=== PATIENT | female | born 1970 | race Caucasian/White ===

== ENCOUNTER → 2020-08-03 08:56 | Outpatient (BNVA) | payer OTHER, SELFPAY | PROVIDERS: Visit Provider Surgery | DX: E66.01 Morbid (severe) obesity due to excess calories (principal); Z68.41 Body mass index [BMI] 40.0-44.9, adult; Z98.84 Bariatric surgery status | CPT/HCPCS: 99212 ==

== ENCOUNTER → 2020-09-02 07:19 | Outpatient (BNVA) | payer OTHER, SELFPAY | PROVIDERS: Visit Provider Surgery | DX: E66.01 Morbid (severe) obesity due to excess calories (principal); Z68.39 Body mass index [BMI] 39.0-39.9, adult; Z71.3 Dietary counseling and surveillance | CPT/HCPCS: Q3014 ==

== ENCOUNTER → 2020-10-05 07:18 | Outpatient (BNVA) | payer OTHER, SELFPAY | PROVIDERS: Visit Provider Surgery | DX: E66.9 Obesity, unspecified (principal); Z68.39 Body mass index [BMI] 39.0-39.9, adult | CPT/HCPCS: Q3014 ==

== ENCOUNTER → 2020-11-13 08:19 | Outpatient (BNVA) | payer OTHER, SELFPAY | PROVIDERS: Visit Provider Surgery | DX: E66.9 Obesity, unspecified (principal); Z68.39 Body mass index [BMI] 39.0-39.9, adult | CPT/HCPCS: Q3014 ==

== ENCOUNTER → 2020-12-14 07:26 | Outpatient (BNVA) | payer OTHER, SELFPAY | PROVIDERS: Visit Provider Surgery | DX: E66.9 Obesity, unspecified (principal); Z68.38 Body mass index [BMI] 38.0-38.9, adult; Z71.3 Dietary counseling and surveillance | CPT/HCPCS: Q3014 ==

== ENCOUNTER → 2021-01-22 08:44 | Outpatient (BNVA) | payer OTHER, SELFPAY | PROVIDERS: Visit Provider Surgery | DX: E66.01 Morbid (severe) obesity due to excess calories (principal); Z68.41 Body mass index [BMI] 40.0-44.9, adult | CPT/HCPCS: Q3014 ==

== ENCOUNTER 2021-03-02 11:23 | Outpatient (REF) | payer OTHER, SELFPAY ==
[2021-03-02 13:26] LABS: MANUAL DIFF FLAG NO
[2021-03-02 13:31] LABS: Basophils Percent Auto 0.4 % (0-2); Eosinophils Absolute Auto 0.1 X10*3/uL (0.0-0.4); Hematocrit 38.4 % (37-47); Hemoglobin 12.1 g/dl (12.0-16.0); Imm Gran Abs Auto 0.01 X10*3/uL (0.00-0.03); Imm Gran Pct Auto 0.1 % (0.0-0.4); Lymphocytes Absolute Auto 1.6 X10*3/uL (1.2-4.9); Lymphocytes Percent Auto 19.9 % (20-40); Mean Corpuscular HGB Conc 31.5 g/dl (31.0-35.0); Mean Corpuscular Hemoglobin 27.8 pg (27.0-33.0); Mean Corpuscular Volume 88.3 fL (80-98); Mean Platelet Volume 10.6 fL (9.4-12.3); Monocytes Absolute Auto 0.5 X10*3/uL (0.1-1.2); Monocytes Percent Auto 6.6 % (2-11); Neutrophils Absolute Auto 5.7 X10*3/uL (2.0-8.3); Platelet Count 251 X10*3/uL (160-400); Red Blood Count 4.35 X10*6/uL (4.20-5.50); Red Cell Distribution Width 15.3 % (11.0-16.0); White Blood Count 7.9 X10*3/uL (4.8-10.8)
[2021-03-02 13:39] LABS: Estimated Average Glucose 94 mg/dL; Hemoglobin A1c % 4.9 %
[2021-03-02 14:04] LABS: Alanine Aminotransferase 11 U/L (0-31); Albumin Level 4.2 g/dL (3.5-5.0); Alkaline Phosphatase 117 U/L (39-117); Anion Gap 12 (12-20); Aspartate Amino Transferase 23 U/L (5-31); Bilirubin Total 0.9 mg/dL (0.0-1.0); Blood Urea Nitrogen 12 mg/dL (9-16); C Reactive Protein 0.73 mg/dL (< or = 0.50); Calcium 9.5 mg/dL (8.4-10.2); Carbon Dioxide 31 mmol/L (22-29); Chloride 103 mmol/L (96-108); Cholesterol 158 mg/dL; Estimated Glomerular Filt Rate > 60; Glucose Random 73 mg/dL (60-115); HDL Cholesterol 47 mg/dL; Iron 51 mcg/dL (30-160); LDL Cholesterol Calculated 100 mg/dl; Percent Iron Saturation 16 % (15-50); Potassium 3.4 mmol/L (3.3-5.1); Sodium 143 mmol/L (135-145); Total Iron Binding Capacity 324 mcg/dL (228-428); Total Protein 6.8 g/dL (6.5-8.0); Triglycerides 59 mg/dL; Unsaturated Iron Binding 273 ug/dL
[2021-03-02 14:32] LABS: Folate 19.2 ng/mL (> or = 4.0); Vitamin B12 992 pg/mL (200-900)
[2021-03-02 14:44] LABS: Ferritin 33 ng/mL (10-250)
[2021-03-02 14:46] LABS: Vitamin D 25-OH Total 37.5 ng/mL (>30)
[2021-03-03 12:52] LABS: Insulin Level Total 3.5 uIU/mL
[2021-03-04 13:06] LABS: Calcium (PTHI) 9.2 mg/dL (8.6-10.4); PTHI 65 pg/mL (14-64)
[2021-03-05 00:06] LABS: Zinc 63 mcg/dL (60-130)
[2021-03-07 04:12] LABS: Vitamin A 30 mcg/dL (38-98)
[2021-03-07 12:36] LABS: Vitamin B1 16 nmol/L (8-30)
== END 2021-03-02 11:24 | disposition home or self-care (01) ==
LOC: HO.LAB 11:23
PROVIDERS: PCP Internal Medicine; Visit Provider Surgery
DX: K91.2 Postsurgical malabsorption, not elsewhere classified (principal); Z90.3 Acquired absence of stomach [part of]
CPT/HCPCS: 36415; 80053; 80061; 82306; 82607; 82728; 82746; 83036; 83525; 83540; 83970; 84425; 84443; 84590; 84630; 85025; 86140

== ENCOUNTER → 2021-04-12 07:52 | Outpatient (BNVA) | payer OTHER, SELFPAY | PROVIDERS: PCP Internal Medicine; Visit Provider Surgery | DX: E66.9 Obesity, unspecified (principal); Z68.34 Body mass index [BMI] 34.0-34.9, adult; Z71.3 Dietary counseling and surveillance; Z79.899 Other long term (current) drug therapy | CPT/HCPCS: 93005; 99212; Q3014 ==

== ENCOUNTER → 2021-06-03 08:21 | Outpatient (BNVA) | payer OTHER, SELFPAY | PROVIDERS: PCP Internal Medicine; Visit Provider Physician Assistant Surgical | DX: E66.9 Obesity, unspecified (principal); E50.9 Vitamin A deficiency, unspecified; K21.9 Gastro-esophageal reflux disease without esophagitis; Z68.36 Body mass index [BMI] 36.0-36.9, adult | CPT/HCPCS: Q3014 ==

== ENCOUNTER 2021-06-11 09:06 | Outpatient (REF) | payer OTHER, SELFPAY ==
--- NOTE | ~2021-06-11 | FL_ITS ---
EXAMINATION: XR GI SERIES CLINICAL INFORMATION: Obesity. COMPARISON: None TECHNIQUE: Routine upper GI air-contrast study was performed in upright and lying position. FINDINGS: Following oral administration of thick barium and effervescent granules, there is normal propagation of bolus from the oral cavity through the pharynx, esophagus into stomach. On placing patient supine and prone lying, the course, caliber and peristalsis of the stomach is normal. There is evidence of previous gastric sleeve surgery. There is moderate gastroesophageal reflux of gas into the esophagus. A small transitional hiatal hernia is noted. FLUOROSCOPY TIME: 1.2 minutes DOSE AREA PRODUCT: 23.708 uGy-m2 (microgray-meter squared) FL/FL upper GI series IMPRESSION: Evidence of previous gastric sleeve surgery. Moderate gastroesophageal reflux of gas. No esophageal or gastric obstruction seen.
== END 2021-06-11 09:07 | disposition home or self-care (01) ==
LOC: HO.XRAY 09:06
PROVIDERS: PCP Internal Medicine; Visit Provider Physician Assistant Surgical
DX: E66.9 Obesity, unspecified (principal); K21.9 Gastro-esophageal reflux disease without esophagitis
CPT/HCPCS: 74240

== ENCOUNTER → 2021-07-01 08:06 | Outpatient (BNVA) | payer OTHER, SELFPAY | PROVIDERS: PCP Internal Medicine; Visit Provider Physician Assistant Surgical | DX: E66.9 Obesity, unspecified (principal); E50.9 Vitamin A deficiency, unspecified | CPT/HCPCS: Q3014 ==

== ENCOUNTER → 2021-07-21 08:07 | Outpatient (BNVA) | payer OTHER, SELFPAY | PROVIDERS: PCP Internal Medicine; Visit Provider Physician Assistant Surgical | DX: F32.A Depression, unspecified (principal); R45.851 Suicidal ideations | CPT/HCPCS: 99212 ==

== ENCOUNTER → 2021-07-26 14:09 | Outpatient (BNVA) | payer OTHER, SELFPAY | PROVIDERS: PCP Internal Medicine; Visit Provider Dietitian, Registered | DX: E66.9 Obesity, unspecified (principal); Z68.39 Body mass index [BMI] 39.0-39.9, adult | CPT/HCPCS: 97803 ==

== ENCOUNTER 2021-07-27 12:37 | Outpatient (REF) | payer OTHER, SELFPAY ==
[2021-07-30 22:11] LABS: Vitamin A 33 mcg/dL (38-98)
== END 2021-07-27 12:38 | disposition home or self-care (01) ==
LOC: HO.LAB 12:37
PROVIDERS: PCP Internal Medicine; Visit Provider Physician Assistant Surgical
DX: E50.9 Vitamin A deficiency, unspecified (principal)
CPT/HCPCS: 36415; 84590

== ENCOUNTER → 2021-08-09 13:48 | Outpatient (BNVA) | payer OTHER, SELFPAY | PROVIDERS: PCP Internal Medicine; Visit Provider Physician Assistant Surgical | DX: E66.9 Obesity, unspecified (principal); Z68.39 Body mass index [BMI] 39.0-39.9, adult | CPT/HCPCS: 99212 ==

== ENCOUNTER → 2021-09-13 08:09 | Outpatient (BNVA) | payer OTHER, SELFPAY | PROVIDERS: PCP Internal Medicine; Visit Provider Physician Assistant Surgical | DX: E66.9 Obesity, unspecified (principal); E50.9 Vitamin A deficiency, unspecified | CPT/HCPCS: Q3014 ==

== ENCOUNTER → 2021-12-01 13:29 | Outpatient (BNVA) | payer OTHER, SELFPAY | PROVIDERS: PCP Internal Medicine; Visit Provider Physician Assistant Surgical | DX: E66.01 Morbid (severe) obesity due to excess calories (principal); Z68.41 Body mass index [BMI] 40.0-44.9, adult | CPT/HCPCS: 99212 ==

== ENCOUNTER → 2022-01-03 13:54 | Outpatient (BNVA) | payer OTHER, SELFPAY | PROVIDERS: PCP Internal Medicine; Referring Provider Surgery; Visit Provider Physician Assistant Surgical | DX: E66.01 Morbid (severe) obesity due to excess calories (principal); Z68.41 Body mass index [BMI] 40.0-44.9, adult; Z71.3 Dietary counseling and surveillance | CPT/HCPCS: 99212 ==

== ENCOUNTER → 2022-02-07 09:00 | Outpatient (BNVA) | payer OTHER, SELFPAY | PROVIDERS: PCP Internal Medicine; Visit Provider Physician Assistant Surgical | DX: E66.01 Morbid (severe) obesity due to excess calories (principal); Z68.41 Body mass index [BMI] 40.0-44.9, adult | CPT/HCPCS: 99212 ==

== ENCOUNTER 2022-05-20 08:41 | Outpatient (REF) | payer OTHER, SELFPAY ==
[2022-05-20 09:54] LABS: MANUAL DIFF FLAG NO
[2022-05-20 10:48] LABS: Basophils Percent Auto 0.7 % (0-2); Eosinophils Absolute Auto 0.2 X10*3/uL (0.0-0.4); Hematocrit 36.3 % (37.0-47.0); Hemoglobin 11.7 g/dl (12.0-16.0); Imm Gran Abs Auto 0.02 X10*3/uL (0.00-0.03); Imm Gran Pct Auto 0.4 % (0.0-0.4); Lymphocytes Absolute Auto 1.3 X10*3/uL (1.2-4.9); Lymphocytes Percent Auto 22.7 % (20-40); Mean Corpuscular HGB Conc 32.2 g/dl (31.0-35.0); Mean Corpuscular Hemoglobin 30.5 pg (27.0-33.0); Mean Corpuscular Volume 94.8 fL (80.0-98.0); Mean Platelet Volume 9.8 fL (9.4-12.3); Monocytes Absolute Auto 0.3 X10*3/uL (0.1-1.2); Monocytes Percent Auto 5.7 % (2-11); Neutrophils Absolute Auto 3.8 x10*3/uL (2.0-8.3); Neutrophils Percent Auto 67.5 % (45-73); Platelet Count 238 X10*3/uL (160-400); Red Blood Count 3.83 X10*6/uL (4.20-5.50); Red Cell Distribution Width 14.1 % (11.0-16.0); White Blood Count 5.6 X10*3/uL (4.8-10.8)
[2022-05-20 10:59] LABS: Estimated Average Glucose 91 mg/dL; Hemoglobin A1c % 4.8 %
[2022-05-20 11:13] LABS: Anion Gap 14 (12-20); Blood Urea Nitrogen 8 mg/dL (9-16); C Reactive Protein 0.75 mg/dL (< or = 0.50); Calcium 8.9 mg/dL (8.4-10.2); Carbon Dioxide 28 mmol/L (22-29); Chloride 106 mmol/L (96-108); Cholesterol 171 mg/dL; Estimated Glomerular Filt Rate > 60; Glucose Random 87 mg/dL (60-115); HDL Cholesterol 64 mg/dL; Iron 53 mcg/dL (30-160); LDL Cholesterol Calculated 95 mg/dl; Potassium 4.8 mmol/L (3.3-5.1); Sodium 143 mmol/L (135-145); Triglycerides 63 mg/dL
[2022-05-20 11:15] LABS: Percent Iron Saturation 13 % (15-50); Total Iron Binding Capacity 395 mcg/dL (228-428); Unsaturated Iron Binding 342 ug/dL
[2022-05-20 11:39] LABS: Ferritin 24 ng/mL (10-250); TSH reflex Free T4 1.85 uIU/mL (0.32-4.0); Vitamin D 25-OH Total 33.9 ng/mL (>30)
[2022-05-20 11:50] LABS: Folate > 20.0 ng/mL (> or = 4.0); Vitamin B12 910 pg/mL (200-900)
[2022-05-22 13:17] LABS: Calcium (PTHI) 8.7 mg/dL (8.6-10.4); PTHI 94 pg/mL (16-77)
[2022-05-24 17:42] LABS: Vitamin A 36 mcg/dL (38-98)
[2022-05-25 02:42] LABS: Zinc 75 mcg/dL (60-130)
[2022-05-26 15:11] LABS: Vitamin B1 12 nmol/L (8-30)
== END 2022-05-20 08:42 | disposition home or self-care (01) ==
LOC: HO.LAB 08:41
PROVIDERS: PCP Internal Medicine; Visit Provider Physician Assistant Surgical
DX: E66.01 Morbid (severe) obesity due to excess calories (principal); Z68.41 Body mass index [BMI] 40.0-44.9, adult; K91.2 Postsurgical malabsorption, not elsewhere classified; Z90.3 Acquired absence of stomach [part of]
CPT/HCPCS: 36415; 80048; 80061; 82306; 82607; 82728; 82746; 83036; 83540; 83970; 84425; 84443; 84590; 84630; 85025; 86140; 99212

== ENCOUNTER → 2022-08-01 13:50 | Outpatient (BNVA) | payer OTHER, SELFPAY | PROVIDERS: PCP Internal Medicine; Visit Provider Physician Assistant Surgical | DX: E66.01 Morbid (severe) obesity due to excess calories (principal); Z68.41 Body mass index [BMI] 40.0-44.9, adult | CPT/HCPCS: Q3014 ==

== ENCOUNTER → 2022-10-12 10:22 | Outpatient (BNVA) | payer OTHER, SELFPAY | PROVIDERS: PCP Internal Medicine; Visit Provider Dietitian, Registered | DX: E66.01 Morbid (severe) obesity due to excess calories (principal); Z68.43 Body mass index [BMI] 50.0-59.9, adult | CPT/HCPCS: 97803 ==

== ENCOUNTER → 2022-11-11 11:16 | Outpatient (BNVA) | payer OTHER, SELFPAY | PROVIDERS: PCP Internal Medicine; Visit Provider Dietitian, Registered | DX: E66.01 Morbid (severe) obesity due to excess calories (principal); Z68.41 Body mass index [BMI] 40.0-44.9, adult | CPT/HCPCS: 97803 ==

== ENCOUNTER → 2022-12-09 14:33 | Outpatient (BNVA) | payer OTHER, SELFPAY | PROVIDERS: PCP Internal Medicine; Visit Provider Dietitian, Registered | DX: E66.01 Morbid (severe) obesity due to excess calories (principal) | CPT/HCPCS: 97803 ==

== ENCOUNTER → 2023-01-24 13:21 | Outpatient (BNVA) | payer OTHER, SELFPAY | PROVIDERS: PCP Internal Medicine; Visit Provider Dietitian, Registered | DX: E66.01 Morbid (severe) obesity due to excess calories (principal); Z68.43 Body mass index [BMI] 50.0-59.9, adult | CPT/HCPCS: 97803 ==

== ENCOUNTER 2023-05-05 08:32 | Outpatient (AMB) | payer OTHER, SELFPAY ==
--- NOTE | 2023-05-05 08:38 | A.OFFVIS_ITS ---
Intake VS Expanded 05/05/23 08:59 Height 5 ft Weight 269 lb BMI 52.5 Intake Visit Reasons: (OV) [facility] 05/19/20 Allergies No Known Allergies Allergy (Verified 05/20/22 08:57) HPI Nutrition Presentation Details LSG 05/19/20 Lowest post op weight (04/12/21) 175# BMI 34,2 Weight at 12 MO PO 188 BMI 36.7 weight 05/20/22 235# BMI 46 Last weight Sep 2022 271# Pt declined weight check at previous appointments Last weight January 274# Current weight 269# Reason for consult elevated BMI Diet Assmnt Details From her lowest weight post op, she has gained nearly 100# in almost 2 years. Since our last appt 3 MO ago, she has lost 5# and she is very proud of that Pt states she still has a lot of room for improvement - she reports this is what she eats daily. but has struggled with snacking in the past although does not report snacking today. breakfast: cymro yogurt [employer] cottage cheese with fruit dinner : premade salad with chicken - Briceño salad from [employer] - educated about the fat content and some other options that have better nutritional value Exercise: walks 2 miles tops almost every day Dietary counseling reduction Diagnosis Nutrition problem #1 overweight/obesity As related to (etiology) #1 excess energy intake and physical inactivity As evidenced by (sign/symptom) #1 high BMI Monitoring/Goals Nutrition problem monitoring total energy intake, level of knowledge/skill, total PRO intake, total CHO intake, weight and oral fluids Outcome progress not met Learning/Education Readiness to learn fair Stages of change action Most Recent Diabetes Results: Cholesterol 171 mg/dL 05/20/22 HDL Cholesterol 64 mg/dL 05/20/22 Triglycerides 63 mg/dL 05/20/22 Creatinine 0.71 mg/dL (0.5-1.4) 05/20/22 Blood Urea Nitrogen 8 mg/dL (9-16) L 05/20/22 Sodium 143 mmol/L (135-145) 05/20/22 Potassium 4.8 mmol/L (3.3-5.1) 05/20/22 Chloride 106 mmol/L (96-108) 05/20/22 Carbon Dioxide 28 mmol/L (22-29) 05/20/22 Calcium 8.9 mg/dL (8.4-10.2) 05/20/22 [facility] Medical History GERD (gastroesophageal reflux disease) Intestinal malabsorption Obesity Obesity Surgical History History of bladder surgery History of sleeve gastrectomy Hx of section Hx of lithotripsy Morbid obesity S/P laparoscopic cholecystectomy Family History Father Heart disease Heart transplant status Mother Epilepsy Social History Alcohol intake: never Patient Tobacco Use Status: Never used Tobacco Assessment & Plan Assessment & Plan (1) Morbid obesity: Code(s): E66.01 - Morbid (severe) obesity due to excess calories Patient Instructions: Rec protein shake at noon, and making her own salad at home - ideally to include a variety of vegetable and lean protein. Increase exercise as tolerated, but congratulated on being consistent with her current walking routine. She is due for her annual PA appt with LUÍS which is already scheduled for next week. Patient was encouraged to communicate needed with our and she will follow with me in August. Utilize group support services Coding Level of Care Code Nutr Indiv Subseq (52451) Diagnoses Morbid obesity E66.01 Time Spent (min) 30
[2023-05-05 08:59] VITALS: BMI 52.5
== END 2023-05-05 08:52 | disposition home or self-care (01) ==
PROVIDERS: PCP Internal Medicine; Visit Provider Dietitian, Registered
DX: E66.01 Morbid (severe) obesity due to excess calories (principal)

== ENCOUNTER → 2023-05-05 08:32 | Outpatient (BNVA) | payer OTHER, SELFPAY | PROVIDERS: PCP Internal Medicine; Visit Provider Dietitian, Registered | DX: E66.01 Morbid (severe) obesity due to excess calories (principal); K90.49 Malabsorption due to intolerance, not elsewhere classified; K21.9 Gastro-esophageal reflux disease without esophagitis; Z68.43 Body mass index [BMI] 50.0-59.9, adult; Z71.3 Dietary counseling and surveillance | CPT/HCPCS: 97803 ==

== ENCOUNTER 2023-05-16 16:17 | Outpatient (AMB) | payer OTHER, SELFPAY ==
--- NOTE | 2023-05-16 16:23 | MHC.OFFVISWM ---
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 Current weight is 267.8 pounds with a BMI of 52.3. Lowest post op weight (04/12/21)? 175#? BMI 34,2 Weight at 12 MO PO 188 BMI 36.7 weight 05/20/22? 235# BMI 46 She states she was 278 about 6-8 weeks ago. She has recovered from her foot surgery. Has not been taking MVI for 10 months Reports she is in a much better place mentally now and encouraged to continue to lose weight Meal plan: 7 bites cottage cheese and fruit (honey dew, cantaloupe, watermelon) irish yogurt Celebrate rebuild shake 2 scoops per shake (2 per day) meal 6 forks protein and 4 forks veg Drinking 32 oz water daily Exercise plan: walking 3 miles 3 days per week. Any post op complications: none MUSHTAQ: never DM: never HTN: never Hyperlipidemia: never GERD:?0-5 scale ??0 = no symptoms ??1 = symptoms noticeable but not bothersome 2 =symptoms bothersome but not daily ? 3 = symptoms bothersome and daily 4 = symptoms affect daily activities 5 = symptoms are incapacitating, unable to do daily activities ? How bad is the heartburn: 0 ? Heartburn while lying down: 0 ? Heartburn when standing up: 0 ? Heartburn after meals: 0 ? Does heartburn change your diet: 0 ? Does heartburn wake you up from sleep: 0 ? Do you have difficulty swallowin ? Do you have pain with swallowin ? If you take medicine for your reflux, does this affect your daily life: 0 Satisfaction with present condition - satisfied or not satisfied: dissatisfied but improving [facility] Medical History GERD (gastroesophageal reflux disease) Intestinal malabsorption Obesity Obesity Surgical History History of bladder surgery History of sleeve gastrectomy Hx of section Hx of lithotripsy Morbid obesity S/P laparoscopic cholecystectomy Family History Father Heart disease Heart transplant status Mother Epilepsy Social History Alcohol intake: never Patient Tobacco Use Status: Never used Tobacco Review of Systems Const All systems reviewed & are unremarkable except as noted in HPI and below Physical Exam Vital Signs: Last Vital Signs Temp 97.6 F 05/16/23 16:32 Pulse 68 05/16/23 16:32 BP 143/63 H 05/16/23 16:32 Pulse Ox 95 05/16/23 16:32 Oxygen Delivery Method Room Air 05/16/23 16:32 BMI result Body Mass Index 52.3 Const General: cooperative and no acute distress Orientation/consciousness: patient oriented x3 Resp Effort & Inspection: normal respiratory effort Auscultation: clear to auscultation bilaterally Cardio Rate: regular rate Rhythm: regular rhythm GI Inspection: Yes normal to inspection and Yes incision (well healed) Palpation (GI): Soft to palpation and no masses Neuro General: patient oriented x3 Assessment & Plan Assessment & Plan (1) Morbid obesity with BMI of 40.0-44.9, adult: Code(s): E66.01 - Morbid (severe) obesity due to excess calories; Z68.41 - Body mass index [BMI] 40.0-44.9, adult Plan: check yearly labs Continue meal plan and if needing a third shake, split (2 scoops, 1 scoop, 1 scoop) Encouraged to increase exercise as tolerated to a goal of walking 7 days per week with an ultimate goal of rejoining the gym reminded of upcoming appt gilson [facility], 09/08/23. Encouraged to take her MVI and cheri+D Orders: Orders Vitamin B12 and Folate Today E50.9 - Vitamin A deficiency, unspecified, E66.01 - Morbid (severe) obesity due to excess calories, Z68.41 - Body mass index [BMI] 40.0-44.9, adult Basic Metabolic Panel Today E50.9 - Vitamin A deficiency, unspecified, E66.01 - Morbid (severe) obesity due to excess calories, Z68.41 - Body mass index [BMI] 40.0-44.9, adult C Reactive Protein Today E50.9 - Vitamin A deficiency, unspecified, E66.01 - Morbid (severe) obesity due to excess calories, Z68.41 - Body mass index [BMI] 40.0-44.9, adult Ferritin Today E50.9 - Vitamin A deficiency, unspecified, E66.01 - Morbid (severe) obesity due to excess calories, Z68.41 - Body mass index [BMI] 40.0-44.9, adult Hemoglobin A1c Today E50.9 - Vitamin A deficiency, unspecified, E66.01 - Morbid (severe) obesity due to excess calories, Z68.41 - Body mass index [BMI] 40.0-44.9, adult Insulin Today E50.9 - Vitamin A deficiency, unspecified, E66.01 - Morbid (severe) obesity due to excess calories, Z68.41 - Body mass index [BMI] 40.0-44.9, adult IRON PROFILE Today E50.9 - Vitamin A deficiency, unspecified, E66.01 - Morbid (severe) obesity due to excess calories, Z68.41 - Body mass index [BMI] 40.0-44.9, adult Lipid Panel Today E50.9 - Vitamin A deficiency, unspecified, E66.01 - Morbid (severe) obesity due to excess calories, Z68.41 - Body mass index [BMI] 40.0-44.9, adult PTHI Today E50.9 - Vitamin A deficiency, unspecified, E66.01 - Morbid (severe) obesity due to excess calories, Z68.41 - Body mass index [BMI] 40.0-44.9, adult TSH reflex Free T4 Today E50.9 - Vitamin A deficiency, unspecified, E66.01 - Morbid (severe) obesity due to excess calories, Z68.41 - Body mass index [BMI] 40.0-44.9, adult Vitamin A Today E50.9 - Vitamin A deficiency, unspecified, E66.01 - Morbid (severe) obesity due to excess calories, Z68.41 - Body mass index [BMI] 40.0-44.9, adult Vitamin B1 Today E50.9 - Vitamin A deficiency, unspecified, E66.01 - Morbid (severe) obesity due to excess calories, Z68.41 - Body mass index [BMI] 40.0-44.9, adult Vitamin D 25-OH Total Today E50.9 - Vitamin A deficiency, unspecified, E66.01 - Morbid (severe) obesity due to excess calories, Z68.41 - Body mass index [BMI] 40.0-44.9, adult Zinc Today E50.9 - Vitamin A deficiency, unspecified, E66.01 - Morbid (severe) obesity due to excess calories, Z68.41 - Body mass index [BMI] 40.0-44.9, adult Complete Blood Count Auto Diff Today E50.9 - Vitamin A deficiency, unspecified, E66.01 - Morbid (severe) obesity due to excess calories, Z68.41 - Body mass index [BMI] 40.0-44.9, adult Coding Level of Care Code Est Pt Level 4 (31069) Diagnoses Morbid obesity with BMI of 40.0-44.9, adult E66.01; Z68.41 Time Spent (min) 40
[2023-05-16 16:32] VITALS: BP 143/63; PULSE 68; TEMP 36.4; O2SAT 95; BMI 52.3
== END 2023-05-16 17:05 | disposition home or self-care (01) ==
PROVIDERS: PCP Internal Medicine; Visit Provider Physician Assistant Surgical
DX: E66.01 Morbid (severe) obesity due to excess calories (principal); Z68.41 Body mass index [BMI] 40.0-44.9, adult
CPT/HCPCS: 99214

== ENCOUNTER → 2023-05-16 16:17 | Outpatient (BNVA) | payer OTHER, SELFPAY | PROVIDERS: PCP Internal Medicine; Visit Provider Physician Assistant Surgical | DX: E66.01 Morbid (severe) obesity due to excess calories (principal); Z68.41 Body mass index [BMI] 40.0-44.9, adult; Z98.84 Bariatric surgery status | CPT/HCPCS: 99212 ==

== ENCOUNTER 2023-05-17 08:23 | Outpatient (REF) | payer OTHER, SELFPAY ==
[2023-05-17 08:42] LABS: MANUAL DIFF FLAG NO
[2023-05-17 08:56] LABS: Basophils Absolute Auto 0.1 X10*3/uL (0.0-0.2); Basophils Percent Auto 0.7 % (0-2); Eosinophils Absolute Auto 0.2 X10*3/uL (0.0-0.4); Eosinophils Percent Auto 3.6 % (0-4); Hematocrit 36.3 % (37.0-47.0); Hemoglobin 11.3 g/dl (12.0-16.0); Imm Gran Abs Auto 0.02 X10*3/uL (0.00-0.03); Imm Gran Pct Auto 0.3 % (0.0-0.4); Lymphocytes Absolute Auto 1.6 X10*3/uL (1.2-4.9); Mean Corpuscular HGB Conc 31.1 g/dl (31.0-35.0); Mean Corpuscular Hemoglobin 27.6 pg (27.0-33.0); Mean Corpuscular Volume 88.5 fL (80.0-98.0); Mean Platelet Volume 9.5 fL (9.4-12.3); Monocytes Absolute Auto 0.4 X10*3/uL (0.1-1.2); Monocytes Percent Auto 6.2 % (2-11); Neutrophils Absolute Auto 4.5 x10*3/uL (2.0-8.3); Neutrophils Percent Auto 66.2 % (45-73); Platelet Count 258 X10*3/uL (160-400); Red Cell Distribution Width 15.8 % (11.0-16.0); White Blood Count 6.7 X10*3/uL (4.8-10.8)
[2023-05-17 09:03] LABS: Estimated Average Glucose 100 mg/dL; Hemoglobin A1c % 5.1 % (<6.0)
[2023-05-17 09:39] LABS: Anion Gap 11 (12-20); Blood Urea Nitrogen 12 mg/dL (9-16); C Reactive Protein 1.34 mg/dL (< or = 0.50); Calcium 9.1 mg/dL (8.4-10.2); Carbon Dioxide 27 mmol/L (22-29); Chloride 107 mmol/L (96-108); Cholesterol 178 mg/dL (<200); Estimated Glomerular Filt Rate > 60; Glucose Random 85 mg/dL (60-115); HDL Cholesterol 52 mg/dL (>40); Iron 47 mcg/dL (30-160); LDL Cholesterol Calculated 107 mg/dL (<100); Percent Iron Saturation 15 % (15-50); Potassium 3.9 mmol/L (3.3-5.1); Sodium 141 mmol/L (135-145); Total Iron Binding Capacity 304 mcg/dL (228-428); Triglycerides 95 mg/dL (<150); Unsaturated Iron Binding 257 ug/dL
[2023-05-17 10:10] LABS: Ferritin 27 ng/mL (10-250); TSH reflex Free T4 2.58 uIU/mL (0.32-4.0); Vitamin D 25-OH Total 32.7 ng/mL (>30)
[2023-05-17 10:11] LABS: Vitamin B12 509 pg/mL (200-900)
[2023-05-17 10:22] LABS: Insulin 5 uU/mL (2-29)
[2023-05-18 10:48] LABS: Calcium (PTHI) 8.8 mg/dL (8.6-10.4); PTHI 85 pg/mL (16-77)
[2023-05-21 16:29] LABS: Zinc 68 mcg/dL (60-130)
[2023-05-22 11:58] LABS: Vitamin B1 6 nmol/L (8-30)
[2023-05-24 00:03] LABS: Vitamin A 52 mcg/dL (38-98)
== END 2023-05-17 08:24 | disposition home or self-care (01) ==
LOC: HO.LAB 08:23
PROVIDERS: PCP Internal Medicine; Visit Provider Physician Assistant Surgical
DX: E50.9 Vitamin A deficiency, unspecified (principal); E66.01 Morbid (severe) obesity due to excess calories; Z68.41 Body mass index [BMI] 40.0-44.9, adult
CPT/HCPCS: 36415; 80048; 80061; 82306; 82607; 82728; 82746; 83036; 83525; 83540; 83970; 84425; 84443; 84590; 84630; 85025; 86140

== ENCOUNTER 2023-07-14 09:43 | Outpatient (AMB) | payer OTHER, SELFPAY ==
--- NOTE | 2023-07-14 09:58 | MHC.OFFVISWM ---
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 Current weight is 271.8 pounds with a BMI of 53. Lowest post op weight (04/12/21)? 175#? BMI 34,2 Weight at 12 MO PO 188 BMI 36.7 Weight 05/20/22? 235# BMI 46 She has recovered from her foot surgery. Has been taking MVI. Reports she is in a much better place mentally now and encouraged to continue to lose weight. She states she would like to try an all liquid diet as she states she is able to do well with the meal plans for 2 weeks and then falls apart Meal plan: 7 bites cottage cheese and fruit (honey dew, cantaloupe, watermelon) slovenian yogurt Celebrate rebuild shake 2 scoops per shake (2 per day) meal 6 forks protein and 4 forks veg Drinking 32 oz water daily Exercise plan: walking 2.5-3 miles 4 days per week. [facility] Medical History GERD (gastroesophageal reflux disease) Obesity Obesity Intestinal malabsorption Surgical History Morbid obesity S/P laparoscopic cholecystectomy History of sleeve gastrectomy Hx of lithotripsy History of bladder surgery Hx of section Family History Father Heart disease Heart transplant status Mother Epilepsy Social History Alcohol intake: never Patient Tobacco Use Status: Never used Tobacco Review of Systems Const All systems reviewed & are unremarkable except as noted in HPI and below Physical Exam Vital Signs: Last Vital Signs Temp 97.5 F 07/14/23 10:05 Pulse 75 07/14/23 10:05 BP 143/65 H 07/14/23 10:05 Pulse Ox 96 07/14/23 10:05 Oxygen Delivery Method Room Air 07/14/23 10:05 BMI result Body Mass Index 53.1 Assessment & Plan Assessment & Plan (1) Morbid obesity: Code(s): E66.01 - Morbid (severe) obesity due to excess calories Plan: Patient has requested an all liquid diet using celebrate rebuild protein powder. Recommendation is for for shakes with 2 scoops each mixed in 10 oz of unsweetened almond milk. Recommend increasing walking to 5 times per week. She will return to the clinic in 6 weeks time, calling or texting with any questions or concerns. Coding Level of Care Code Est Pt Level 3 (70210) Diagnoses Morbid obesity E66.01
[2023-07-14 10:05] VITALS: BP 143/65; PULSE 75; TEMP 36.4; O2SAT 96; BMI 53.1
== END 2023-07-14 10:31 | disposition home or self-care (01) ==
PROVIDERS: PCP Internal Medicine; Visit Provider Physician Assistant Surgical
DX: E66.01 Morbid (severe) obesity due to excess calories (principal)
CPT/HCPCS: 99213

== ENCOUNTER → 2023-07-14 09:43 | Outpatient (BNVA) | payer OTHER, SELFPAY | PROVIDERS: PCP Internal Medicine; Visit Provider Physician Assistant Surgical | DX: E66.9 Obesity, unspecified (principal); K90.9 Intestinal malabsorption, unspecified; K21.9 Gastro-esophageal reflux disease without esophagitis; Z68.43 Body mass index [BMI] 50.0-59.9, adult; Z90.49 Acquired absence of other specified parts of digestive tract; Z90.3 Acquired absence of stomach [part of] | CPT/HCPCS: 99212 ==

== ENCOUNTER 2023-08-25 08:21 | Outpatient (AMB) | payer OTHER, SELFPAY ==
--- NOTE | 2023-08-25 08:30 | A.OFFVIS_ITS ---
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 Current weight is 271.8 pounds with a BMI of 53. Lowest post op weight (04/12/21)? 175#? BMI 34,2 Weight at 12 MO PO 188 BMI 36.7 Weight 05/20/22? 235pounds BMI 46 weight on 07/14/23 271.8 pounds and BMI of 53.1 Weight today is 271.4 pounds and BMI of 53 She has recovered from her foot surgery. Has been taking MVI. Reports she is in a much better place mentally now and encouraged to continue to lose weight. At her last visit, she stated she would like to do an all liquid diet. She states she just found out her 12 yo son has a tumor on his penis and she has to go to [facility] for treatment, This has not yet happened but she is very upset about this. Her ortho surgeon is planning on doing an MRI of her neck in a couple of weeks if her right arm continues to hurt. She states she was able to follow the meal plan for 2 weeks but then stopped when she found out about her sons tumor. She thinks she could do 2 shakes. She states that she does not want to return to the program for some time as she needs to focus on her son. She was offered a follow-up video appointment but declined. She certainly was encouraged to call the office at any time when she wishes to return as well she was encouraged to text me if she has any questions or concerns. Meal plan: Celebrate rebuild protein powder 4 shakes with 2 scoops each in 10 oz of unsweetened almond milk. Drinking 32 oz water Exercise plan: walking 2-4 miles 4 days per week. [facility] Medical History GERD (gastroesophageal reflux disease) Obesity Obesity Intestinal malabsorption Surgical History Morbid obesity S/P laparoscopic cholecystectomy History of sleeve gastrectomy Hx of lithotripsy History of bladder surgery Hx of section Family History Father Heart disease Heart transplant status Mother Epilepsy Social History Alcohol intake: never Patient Tobacco Use Status: Never used Tobacco Review of Systems Const All systems reviewed & are unremarkable except as noted in HPI and below Physical Exam Const General: healthy appearing and no acute distress Resp Effort & Inspection: normal respiratory effort Auscultation: clear to auscultation bilaterally Cardio Rate: regular rate Rhythm: regular rhythm GI Auscultation: normal bowel sounds Extrem General: Yes normal to inspection Assessment & Plan Assessment & Plan (1) Morbid obesity with BMI of 40.0-44.9, adult: Code(s): E66.01 - Morbid (severe) obesity due to excess calories; Z68.41 - Body mass index [BMI] 40.0-44.9, adult Plan: She will attempt to do to celebrate rebuild shakes with 2 scoops each in 10 oz of unsweetened almond milk as well as 2 meals consisting of 7 forks of protein and 7 forks of vegetables each. She was encouraged to increase her walking to 5-6 days a week, 3 miles daily. She certainly may return to the office at any time. She was encouraged to text me with any questions or concerns at any time. She declines follow-up appointment at this time. Coding Level of Care Code Est Pt Level 3 (50625) Diagnoses Morbid obesity with BMI of 40.0-44.9, adult E66.01; Z68.41
[2023-08-25 08:37] VITALS: BP 126/63; PULSE 96; TEMP 36.2; O2SAT 97; BMI 53.0
== END 2023-08-25 09:02 | disposition home or self-care (01) ==
PROVIDERS: PCP Internal Medicine; Visit Provider Physician Assistant Surgical
DX: E66.01 Morbid (severe) obesity due to excess calories (principal); Z68.41 Body mass index [BMI] 40.0-44.9, adult
CPT/HCPCS: 99213

== ENCOUNTER → 2023-08-25 08:21 | Outpatient (BNVA) | payer OTHER, SELFPAY | PROVIDERS: PCP Internal Medicine; Visit Provider Physician Assistant Surgical | DX: E66.01 Morbid (severe) obesity due to excess calories (principal); Z68.43 Body mass index [BMI] 50.0-59.9, adult | CPT/HCPCS: 99212 ==

== ENCOUNTER 2023-12-01 15:06 | Outpatient (AMB) | payer OTHER, SELFPAY ==
--- NOTE | 2023-12-01 15:11 | A.OFFVIS_ITS ---
Intake VS Expanded 12/01/23 15:21 BP 134/61 Blood Pressure Location Rt brachial Blood Pressure Position Sitting Pulse 74 Pulse Source Pulse Oximeter Temp 97.6 F Temperature Source Tympanic Pulse Oximetry 92 Oxygen Delivery Method Room Air Height 5 ft Weight 278 lb 3.2 oz BMI 54.3 Body Fat % 48.7 Body Fat Mass 135.4 Fat Free Mass 142.6 Visceral Fat Rating 19.0 Body Water % 36.6 Body Water Mass 101.6 Muscle Mass/Score 135.4 Basal Metabolic Rate/Score 2,033 Intake Visit Reasons: (ov) po [facility] 05/19/20 Allergies No Known Allergies Allergy (Verified 08/25/23 08:34) HPI HPI Comments History of Present Illness Details 53-year-old female returns to the office today in follow-up. She is status post sleeve gastrectomy performed 04/29/2020. She is approximately 3 years 7 months postoperative. She was last seen in the office in August. Weight at that time was 271.4 with a BMI of 53. Weight today is 278.2 with a BMI of 54.3. She had been under significant stress at that time as her son was being treated for a genital tumor. This has since resolved and she states he is cancer free. Meal plan: 2 eggs tuna or leftovers pasta, or chili, burnt ends, chicken nap until daughter gets home from work at 1230 am (eating ice cream or cheese) drinking 64 oz water, 12 oz sprite 2 x per week. exercise plan: walking 45-90 min daily [facility] Medical History GERD (gastroesophageal reflux disease) Obesity Obesity Intestinal malabsorption Surgical History Morbid obesity S/P laparoscopic cholecystectomy History of sleeve gastrectomy Hx of lithotripsy History of bladder surgery Hx of section Family History Father Heart disease Heart transplant status Mother Epilepsy Social History Alcohol intake: never Patient Tobacco Use Status: Never used Tobacco Review of Systems Const All systems reviewed & are unremarkable except as noted in HPI and below Physical Exam Const General: healthy appearing and no acute distress Resp Effort & Inspection: normal respiratory effort Auscultation: clear to auscultation bilaterally Cardio Rate: regular rate Rhythm: regular rhythm GI Auscultation: normal bowel sounds Extrem General: Yes normal to inspection Assessment & Plan Assessment & Plan (1) Morbid obesity with BMI of 40.0-44.9, adult: Code(s): E66.01 - Morbid (severe) obesity due to excess calories; Z68.41 - Body mass index [BMI] 40.0-44.9, adult Plan: Change meal plan to include celebrate rebuild shakes. Two scoops in 10 oz of unsweetened almond milk at 6-8 am, 9-11 am Zone perfect bar 1-3 pm, 4-6 pm meal at 7 pm 9 forks of protein and 9 forks of veggies She will stop waking up at 12:30 in the morning to discuss the day's events with her daughter. She will have a mother daughter day on Fridays when they both are not working. Continue to walk as she is doing although suggest tracking her calories with the meng, [employer]. Return to clinic 1 month. Coding Level of Care Code Est Pt Level 3 (36416) Diagnoses Morbid obesity with BMI of 40.0-44.9, adult E66.01; Z68.41
[2023-12-01 15:21] VITALS: BP 134/61; PULSE 74; TEMP 36.4; O2SAT 92; BMI 54.3
== END 2023-12-01 15:46 | disposition home or self-care (01) ==
PROVIDERS: PCP Internal Medicine; Visit Provider Physician Assistant Surgical
DX: E66.01 Morbid (severe) obesity due to excess calories (principal); Z68.41 Body mass index [BMI] 40.0-44.9, adult
CPT/HCPCS: 99213

== ENCOUNTER → 2023-12-01 15:06 | Outpatient (BNVA) | payer OTHER, SELFPAY | PROVIDERS: PCP Internal Medicine; Visit Provider Physician Assistant Surgical | DX: E66.01 Morbid (severe) obesity due to excess calories (principal); Z68.43 Body mass index [BMI] 50.0-59.9, adult | CPT/HCPCS: 99212 ==

== ENCOUNTER 2024-01-01 14:33 | Outpatient (AMB) | payer OTHER, SELFPAY ==
--- NOTE | 2024-01-01 14:36 | A.OFFVIS_ITS ---
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 She is status post sleeve gastrectomy performed 04/29/2020. She is approximately 3 years 8 months postoperative. She was last seen in the office 12/01/23. Weight at that time was 278.2 with a BMI of 54.3. Weight today is 273.2 lb with a BMI of 53.3. She states her 5 pound weight loss since last visit is increased walking and now she states she has more money to afford bars and shakes. She has not been following the meal plan exactly over the last several weeks as she didn't have the money for the shakes and bars. Typically would have oatmeal, PB and J sandwich and then meat and veg at dinner Meal plan: celebrate rebuild shakes. Two scoops in 10 oz of unsweetened almond milk at 6-8 am, 9-11 am Zone perfect bar 1-3 pm, 4-6 pm meal at 7 pm 9 forks of protein and 9 forks of veggies drinking 64 oz water, exercise plan: walking 60-90 min daily [facility] Medical History GERD (gastroesophageal reflux disease) Obesity Obesity Intestinal malabsorption Surgical History Morbid obesity S/P laparoscopic cholecystectomy History of sleeve gastrectomy Hx of lithotripsy History of bladder surgery Hx of section Family History Father Heart disease Heart transplant status Mother Epilepsy Social History Alcohol intake: never Patient Tobacco Use Status: Never used Tobacco Physical Exam Vital Signs: Last Vital Signs Temp 95.0 F L 01/01/24 14:42 Pulse 74 01/01/24 14:42 BP 126/59 L 01/01/24 14:42 Pulse Ox 95 01/01/24 14:42 Oxygen Delivery Method Room Air 01/01/24 14:42 BMI result Body Mass Index 53.3 Const General: healthy appearing and no acute distress Resp Effort & Inspection: normal respiratory effort Auscultation: clear to auscultation bilaterally Cardio Rate: regular rate Rhythm: regular rhythm GI Auscultation: normal bowel sounds Extrem General: Yes normal to inspection Assessment & Plan Assessment & Plan (1) Morbid obesity with BMI of 40.0-44.9, adult: Code(s): E66.01 - Morbid (severe) obesity due to excess calories; Z68.41 - Body mass index [BMI] 40.0-44.9, adult Plan: She is lost 5 lb just by increasing exercise. She now has money to afford the protein shakes and protein bars which she will now incorporate into her meal plan. She was advised to avoid bread and soda. We will have her return to the office when she comes back from her vacation in [place]. Coding Level of Care Code Est Pt Level 3 (71263) Diagnoses Morbid obesity with BMI of 40.0-44.9, adult E66.01; Z68.41
[2024-01-01 14:42] VITALS: BP 126/59; PULSE 74; TEMP 35; O2SAT 95; BMI 53.3
== END 2024-01-01 15:11 | disposition home or self-care (01) ==
PROVIDERS: PCP Internal Medicine; Visit Provider Physician Assistant Surgical
DX: E66.01 Morbid (severe) obesity due to excess calories (principal); Z68.41 Body mass index [BMI] 40.0-44.9, adult
CPT/HCPCS: 99213

== ENCOUNTER → 2024-01-01 14:33 | Outpatient (BNVA) | payer OTHER, SELFPAY | PROVIDERS: PCP Internal Medicine; Visit Provider Physician Assistant Surgical | DX: E66.01 Morbid (severe) obesity due to excess calories (principal); K90.49 Malabsorption due to intolerance, not elsewhere classified; Z68.43 Body mass index [BMI] 50.0-59.9, adult; Z90.3 Acquired absence of stomach [part of] | CPT/HCPCS: 99212 ==

== ENCOUNTER 2024-02-06 14:23 | Outpatient (AMB) | payer OTHER, SELFPAY ==
--- NOTE | 2024-02-06 14:27 | MHC.OFFVISWM ---
VS Expanded 02/06/24 14:40 BP 140/65 H Blood Pressure Location Rt brachial Blood Pressure Position Sitting Pulse 76 Pulse Source Pulse Oximeter Temp 97.1 F Temperature Source Temporal Artery Scan Pulse Oximetry 95 Oxygen Delivery Method Room Air Height 5 ft Weight 270 lb 6.4 oz BMI 52.8 Body Fat % 48.9 Body Fat Mass 132.0 Fat Free Mass 138.2 Visceral Fat Rating 19.0 Body Water % 36.4 Body Water Mass 98.4 Muscle Mass/Score 131.2 Basal Metabolic Rate/Score 1,969 Intake Visit Reasons: (ov) po lsg 05/19/20 Allergies No Known Allergies Allergy (Verified 02/06/24 14:33) HPI Comments Details: 53-year-old female returns to the office today in follow-up. She is status post sleeve gastrectomy performed 04/29/2020. She is approximately 3 years 9 months postoperative. Weight today is 270.4 lb with a BMI of 52.8. She was away in [place] and had difficulty following the plan. She did increase her walking. Due to social pressure from her family she ate more than she should. SHe has been back for about a week. Meal plan: celebrate rebuild shakes. Two scoops in 10 oz of unsweetened almond milk at 6-8 am, 9-11 am Zone perfect bar 1-3 pm, 4-6 pm meal at 7 pm 9 forks of protein and 9 forks of veggies drinking 64 oz water, exercise plan: walking 3-3.5 daily PFSH Medical History GERD (gastroesophageal reflux disease) Obesity Obesity Intestinal malabsorption Surgical History Morbid obesity S/P laparoscopic cholecystectomy History of sleeve gastrectomy Hx of lithotripsy History of bladder surgery Hx of section Family History Father Heart disease Heart transplant status Mother Epilepsy Social History Alcohol intake: never Patient Tobacco Use Status: Never used Tobacco Physical Exam Const General: healthy appearing and no acute distress Resp Effort & Inspection: normal respiratory effort Auscultation: clear to auscultation bilaterally Cardio Rate: regular rate Rhythm: regular rhythm GI Auscultation: normal bowel sounds Extrem General: Yes normal to inspection Assessment & Plan Assessment & Plan (1) Morbid obesity: Code(s): E66.01 - Morbid (severe) obesity due to excess calories Category: Surgical Plan: Overall, doing well. Making slow but steady progress. Now that she is returned from vacation and able to institute the meal plan as we discussed above, she will do so. We will additionally have her return to the office in approximately 6 weeks and then approximately 6 weeks after that. She has been encouraged to text weekly with any questions or concerns.
[2024-02-06 14:40] VITALS: BP 140/65; PULSE 76; TEMP 36.2; O2SAT 95; BMI 52.8
== END 2024-02-06 14:57 | disposition home or self-care (01) ==
PROVIDERS: PCP Internal Medicine; Visit Provider Physician Assistant Surgical
DX: E66.01 Morbid (severe) obesity due to excess calories (principal)
CPT/HCPCS: 99213

== ENCOUNTER → 2024-02-06 14:23 | Outpatient (BNVA) | payer OTHER, SELFPAY | PROVIDERS: PCP Internal Medicine; Visit Provider Physician Assistant Surgical | DX: E66.01 Morbid (severe) obesity due to excess calories (principal); Z68.43 Body mass index [BMI] 50.0-59.9, adult; Z98.84 Bariatric surgery status | CPT/HCPCS: 99212 ==

== ENCOUNTER 2024-04-15 09:20 | Outpatient (AMB) | payer OTHER, SELFPAY ==
--- NOTE | 2024-04-15 09:27 | A.OFFVIS_ITS ---
VS Expanded 04/15/24 09:32 BP 145/67 H Blood Pressure Location Rt radial Blood Pressure Position Sitting Pulse 89 Pulse Source Pulse Oximeter Temp 96.3 F L Temperature Source Tympanic Pulse Oximetry 96 Oxygen Delivery Method Room Air Height 5 ft Weight 263 lb 12.8 oz BMI 51.5 Body Fat % 50.0 Body Fat Mass 131.8 Fat Free Mass 131.8 Visceral Fat Rating 19.0 Body Water % 35.6 Body Water Mass 94.0 Muscle Mass/Score 125.2 Basal Metabolic Rate/Score 1,886 Intake Visit Reasons: OV PO LSG 05/19/20 Allergies No Known Allergies Allergy (Verified 04/15/24 09:33) HPI Comments Details: 54-year-old female returns to the office today in follow-up. She is status post sleeve gastrectomy performed 04/29/2020. She is approximately 3 years 11 months postoperative. Weight today is 263.8 lb with a BMI of 51.5. She states she does not like the shakes anymore and she has changed her meal plan without any communication or guidance. recommended plan: celebrate rebuild shakes. Two scoops in 10 oz of unsweetened almond milk at 6-8 am, 9-11 am Zone perfect bar 1-3 pm, 4-6 pm meal at 7 pm 9 forks of protein and 9 forks of veggies drinking 64 oz water, her plan: [place] yogurt or ZP bar citizen [place] yogurt or bar 10 cubes of cheese 7 forks protein and 5 forks veg another bar or yogurt 64-80 oz water exercise plan: walking 3-3.5 daily elliptical machine at home bought used, 2-4 x per week, 20 minutes, [facility] Medical History GERD (gastroesophageal reflux disease) Obesity Obesity Intestinal malabsorption Surgical History Morbid obesity S/P laparoscopic cholecystectomy History of sleeve gastrectomy Hx of lithotripsy History of bladder surgery Hx of section Family History Father Heart disease Heart transplant status Mother Epilepsy Social History Alcohol intake: never Patient Tobacco Use Status: Never used Tobacco Physical Exam Vital Signs: Last Vital Signs Temp 96.3 F L 04/15/24 09:32 Pulse 89 04/15/24 09:32 BP 145/67 H 04/15/24 09:32 Pulse Ox 96 04/15/24 09:32 Oxygen Delivery Method Room Air 04/15/24 09:32 BMI result Body Mass Index 51.5 Const General: healthy appearing and no acute distress Resp Effort & Inspection: normal respiratory effort Auscultation: clear to auscultation bilaterally Cardio Rate: regular rate Rhythm: regular rhythm GI Auscultation: normal bowel sounds Extrem General: Yes normal to inspection Assessment & Plan Assessment & Plan (1) Morbid obesity with BMI of 40.0-44.9, adult: Code(s): E66.01 - Morbid (severe) obesity due to excess calories; Z68.41 - Body mass index [BMI] 40.0-44.9, adult Category: Medical Plan: Patient states that she does not wish to use protein shakes any longer. I have instructed her to have 2 zone perfect protein bars and 2 Italian yogurt and 8 forks protein and 7 forks vegetables. I have instructed her to use her exercise machine at home daily in addition to walking. Text with any questions or concerns. Return to clinic 4 weeks
[2024-04-15 09:32] VITALS: BP 145/67; PULSE 89; TEMP 35.7; O2SAT 96; BMI 51.5
== END 2024-04-15 09:58 | disposition home or self-care (01) ==
PROVIDERS: PCP Internal Medicine; Visit Provider Physician Assistant Surgical
DX: E66.01 Morbid (severe) obesity due to excess calories (principal); Z68.41 Body mass index [BMI] 40.0-44.9, adult
CPT/HCPCS: 99213

== ENCOUNTER → 2024-04-15 09:20 | Outpatient (BNVA) | payer OTHER, SELFPAY | PROVIDERS: PCP Internal Medicine; Visit Provider Physician Assistant Surgical | DX: E66.01 Morbid (severe) obesity due to excess calories (principal); Z68.43 Body mass index [BMI] 50.0-59.9, adult; Z98.84 Bariatric surgery status | CPT/HCPCS: 99212 ==

== ENCOUNTER 2024-08-28 14:03 | Outpatient (AMB) | payer OTHER, SELFPAY ==
--- NOTE | 2024-08-28 14:04 | MHC.OFFVISWM ---
VS Expanded 08/28/24 14:09 BP 134/64 Blood Pressure Location Rt brachial Blood Pressure Position Sitting Pulse 80 Pulse Source Pulse Oximeter Temp 97.8 F Temperature Source Temporal Artery Scan Pulse Oximetry 95 Oxygen Delivery Method Room Air Height 5 ft Weight 263 lb 6.4 oz BMI 51.4 Body Fat % 49.7 Body Fat Mass 131.0 Fat Free Mass 132.2 Visceral Fat Rating 19.0 Body Water % 35.8 Body Water Mass 94.2 Muscle Mass/Score 125.6 Basal Metabolic Rate/Score 1,890 Intake Visit Reasons: (ov) po lsg 05/19/20 Allergies No Known Allergies Allergy (Verified 08/28/24 14:07) HPI Comments Details: 54-year-old female returns to the office today in follow-up. She is status post sleeve gastrectomy performed 04/29/2020. She is approximately 4 years 3 months postoperative. Weight today is 263.4 lb with a BMI of 51.4. She states she does not like the shakes anymore and she has changed her meal plan without any communication or guidance. Not following any particular meal plan. Not exercising recommended plan: celebrate rebuild shakes. Two scoops in 10 oz of unsweetened almond milk at 6-8 am, 9-11 am Zone perfect bar 1-3 pm, 4-6 pm meal at 7 pm 6 forks of protein and 6 forks of veggies drinking 64 oz water, exercise plan: elliptical machine at home bought used [facility] Medical History GERD (gastroesophageal reflux disease) Obesity Obesity Intestinal malabsorption Surgical History Morbid obesity S/P laparoscopic cholecystectomy History of sleeve gastrectomy Hx of lithotripsy History of bladder surgery Hx of section Family History Father Heart disease Heart transplant status Mother Epilepsy Social History Alcohol intake: never Patient Tobacco Use Status: Never used Tobacco Physical Exam Vital Signs: Last Vital Signs Temp 97.8 F 08/28/24 14:09 Pulse 80 08/28/24 14:09 BP 134/64 08/28/24 14:09 Pulse Ox 95 12/04/24 14:09 Oxygen Delivery Method Room Air 08/28/24 14:09 BMI result Body Mass Index 51.4 Const General: healthy appearing and no acute distress Resp Effort & Inspection: normal respiratory effort Auscultation: clear to auscultation bilaterally Cardio Rate: regular rate Rhythm: regular rhythm GI Auscultation: normal bowel sounds Extrem General: Yes normal to inspection Assessment & Plan Assessment & Plan (1) Morbid obesity: Code(s): E66.01 - Morbid (severe) obesity due to excess calories Category: Surgical Plan: Discussed the importance of following meal plan and exercising regularly. Again went over the meal plan and gave it to her in written form. She will resume her exercise at home with a goal of burning 300 calories per day. She has been encouraged to text weekly with her weight is and with any questions or concerns. Have her return to the office as scheduled. Encouraged to get labs done that were ordered in April
[2024-08-28 14:09] VITALS: BP 134/64; PULSE 80; TEMP 36.6; O2SAT 95; BMI 51.4
--- OUTSIDE RECORDS SUMMARY | 2024-09-03 20:43 | XMS_ITS | Clinical Summary ---
Author Organization Unknown Care Team Providers Care Spinner Iron Name Role Phone CHANCE RODRIGUEZ, LILLI Unavailable Unavailable HARRISON OT, NURYS Unavailable Unavailjoaquim HIDALGO RN, ULISES Unavailable Unavailable MEAGAN OT, THERAPY REHABILITATION SPECIALIST, MARISSA Unavailjoaquim matthews Unavailable FRANKO RN, KAREN Unavailable Unavailable HEBER ([facility] [place]) [facility] [place] - PT, HARSH Unavailable Unavailable DOMINICK RN, HEIDI Unavailable Unavailable Payers Payer Name Policy Type Policy Number Effective Date Expira tion Date [facility] [id number] [place] [id number] MEDICARE - [facility] [facility] [id number] Problems Condition Name Condition Details Condition Category Status Onset Date Resolution Date Last Treatment Date Treating Clinician Comments MAJOR DEPRESSIVE DISORDER, SINGLE EPISODE, UNSPECIFIED Active 11-25 00:00: 00 AFTERCARE FOLLOWING EXPLANTATION OF KNEE JOINT PROSTHESIS Active 11-26 00:00: 00 PRESENCE OF RIGHT ARTIFICIAL KNEE JOINT Active 18 00:00: 00 UNSPECIFIED ABNORMALITIE S OF GAIT AND MOBILITY Active 2021-09 0-31 00:00: 00 Allergies, Adverse Reactions, Alerts Allergy Name Allergy Type Status Severity Reaction(s) Onset Date Inactive Date Treating Clinician Comments NKA Propensity to adverse reactions Active 2020-11 20:09:3 6 Medications Ordered Medication Name Filled Medication Name Start Date Stop Date Current Medication? Ordering Clinician Indication Dosage Frequency Signature (SIG) Comments Components Abilify 10 mg tablet 11-28 00:00: 00 Yes [id number] 10 mg EVERY AM 10 mg EVERY AM (route: oral) Med Classific ation: Central Nervous System Agents benztropine 0.5 mg tablet 11-28 00:00: 00 02-01 23:59 :00 No [id number] 0.5 mg 2 TIMES DAILY 0.5 mg 2 TIMES DAILY (route: oral) Med Classific ation: Central Nervous System Agents Iron (ferrous sulfate) 325 mg (65 mg iron) tablet 11-28 00:00: 00 11-29 23:59 :00 No [id number] 325 mg EVERY AM 325 mg EVERY AM (route: oral) Med Classific ation: Electroly te Balance-N utritiona l Products lamotrigine 25 mg tablet 11-28 00:00: 00 05-26 23:59 :00 No [id number] 25 mg EVERY AM 25 mg EVERY AM (route: oral) Med Classific ation: Central Nervous System Agents lamotrigine 25 mg tablet 05-25 00:00: 00 02-01 23:59 :00 No [id number] 75 mg DAILY 75 mg DAILY (route: oral) Alternate Route: NONE. Med Classific ation: Central Nervous System Agents levothyroxi ne 75 mcg tablet 11-28 00:00: 00 Yes [id number] 75 mcg EVERY AM 75 mcg EVERY AM (route: oral) Med Classific ation: Endocrine Lexapro 20 mg tablet 11-28 00:00: 00 Yes [id number] 20 mg EVERY AM 20 mg EVERY AM (route: oral) Med Classific ation: Central Nervous System Agents Myrbetriq 50 mg tablet,exte nded release 11-28 00:00: 00 11-29 23:59 :00 No [id number] 50 mg EVERY AM 50 mg EVERY AM (route: oral) Med Classific ation: Genitouri nary Therapy omeprazole 20 mg capsule,del ayed release 11-28 00:00: 00 11-29 23:59 :00 No [id number] 20 capsule EVERY AM 20 capsule EVERY AM (route: oral) Med Classific ation: Gastroint estinal Therapy Agents Vitamin D3 50 mcg (2,000 unit) capsule 11-28 00:00: 00 05-22 23:59 :00 No [id number] 2000 capsule EVERY AM 2000 capsule EVERY AM (route: oral) Med Classific ation: Electroly te Balance-N utritiona l Products Dilaudid 4 mg tablet 11-29 00:00: 00 02-01 23:59 :00 No [id number] 4 mg EVERY 3 HOURS 4 mg EVERY 3 HOURS (route: oral) Med Classific ation: Analgesic , Anti-infl ammatory or Antipyret ic Xarelto 10 mg tablet 11-29 00:00: 00 12-13 23:59 :00 No [id number] 10 mg DAILY 10 mg DAILY (route: oral) Med Classific ation: Hematolog ical Agents hydromorpho ne 4 mg tablet 12-10 00:00: 00 02-01 23:59 :00 No [id number] 4 mg NEEDED 4 mg NEEDED (route: oral) Med Classific ation: Analgesic , Anti-infl ammatory or Antipyret ic meclizine 12.5 mg tablet 2020-09 00:00: 00 02-01 23:59 :00 No [id number] 12.5 mg NEEDED 12.5 mg NEEDED (route: oral) Med Classific ation: Gastroint estinal Therapy Agents polysacchar madonna iron complex 150 mg iron capsule 2020-09 00:00: 00 02-01 23:59 :00 No [id number] 150 mg DAILY 150 mg DAILY (route: oral) Med Classific ation: Electroly te Balance-N utritiona l Products benztropine 1 mg tablet 02-01 00:00: 00 Yes [id number] 1 mg DAILY 1 mg BETTY Y (route: oral) Med Classific ation: Central Nervous System Agents Colace 100 mg capsule 02-01 00:00: 00 Yes [id number] 100 mg NEEDED 100 mg NEEDED (route: oral) Med Classific ation: Gastroint estinal Therapy Agents lamotrigine 200 mg tablet 02-01 00:00: 00 Yes [id number] 200 mg DAILY 200 mg DAILY (route: oral) Med Classific ation: Central Nervous System Agents multivitami n tablet 02-01 00:00: 00 Yes [id number] 1 tablet DAILY 1 tablet DAILY (route: oral) Med Classific ation: Electroly te Balance-N utritiona l Products Protonix 40 mg tablet,benjamin yed release 5-10 00:00: 00 Yes [id number] 40 mg DAILY 40 mg DAILY (route: oral) Med Classific ation: Gastroint estinal Therapy Agents Xarelto 10 mg tablet 2021-09 0 00:00: 00 08-16 23:59 :00 No [id number] 1 tablet DAILY 1 tablet DAILY (route: oral) Med Classific ation: Hematolog ical Agents acetaminoph en 500 mg tablet 2021-09 0 00:00: 00 Yes [id number] 2 tablet EVERY 8 HOURS 2 tablet EVERY 8 HOURS (route: oral) Med Classific ation: Analgesic , Anti-infl ammatory or Antipyret ic iron 325 mg (65 mg iron) tablet 05-18 00:00: 00 Yes [id number] 325 mg DAILY 325 mg DAILY (route: oral) Med Classific ation: Electroly te Balance-N utritiona l Products Plan of Treatment Planned Activity Planned Date Details Comments Future Scheduled Test SKILLED NU RSE TO EVALUATE PATIENT, IDENTIFY PRIMARY AND CO-MORBID CONDITIONS CODED PER CODING GUIDELINES, AND DEVELOP PATIENT SPECIFIC PLAN OF CARE THAT INCLUDES PATIENT GOAL FOR HOME HEALTH. [code = SKILLED NURSE TO EVALUATE PATIENT, IDENTIFY PRIMARY AND CO-MORBID CONDITIONS CODED PER CODING GUIDELINES, AND DEVELOP PATIENT SPECIFIC PLAN OF CARE THAT INCLUDES PATIENT GOAL FOR HOME HEALTH.] Future Scheduled Test SKILLED NU RSE TO PERFORM HOME SAFETY AND FALL ASSESSMENT AND PROVIDE INSTRUCTION TO IMPLEMENT HOME SAFETY AND FALL PREVENTION STRATEGIES. [code = SKILLED NURSE TO PERFORM HOME SAFETY AND FALL ASSESSMENT AND PROVIDE INSTRUCTION TO IMPLEMENT HOME SAFETY AND FALL PREVENTION STRATEGIES.] Future Scheduled Test SKILLED NU RSE TO PROVIDE INSTRUCTION TO PATIENT/CAREGIVER RELATED TO DISCHARGE PLANNING. [code = SKILLED NURSE TO PROVIDE INSTRUCTION TO PATIENT/CAREGIVER RELATED TO DISCHARGE PLANNING.] Future Scheduled Test SKILLED NU RSE TO O/A OF PATIENTS MENTAL/BEHAVIORAL STATUS, ASSESS VITAL SIGNS THREE TIMES A WEEK [code = SKILLED NURSE TO O/A OF PATIENTS MENTAL/BEHAVIORAL STATUS, ASSESS VITAL SIGNS THREE TIMES A WEEK ] Future Scheduled Test CLINICAL S UMMARY (SOC/RECERT, 10 DAY, 60 DAY): THE PATIENT IS RECEIVING HOMECARE DUE TO NEW ONSET/EXACERBATION OF: YES RECENT HOSPITALIZATION/INPATIENT ADMISSION RELATED TO: NO NEW OR CHANGED MEDICATIONS PERTINENT TO THE PLAN OF CARE: YES PATIENT LIVING SITUATION/CAREGIVER STATUS: ALONE SUMMARIZE SKILLED NEED: MEDICATION MANAGEMENT, VITAL SIGN ASSESSMENT, MENTAL STATUS ASSESSMENT AND DIAGNOSIS MANAGEMENT [code = CLINICAL SUMMARY (SOC/RECERT, 10 DAY, 60 DAY): THE PATIENT IS RECEIVING HOMECARE DUE TO NEW ONSET/EXACERBATION OF: YES RECENT HOSPITALIZATION/INPATIENT ADMISSION RELATED TO: NO NEW OR CHANGED MEDICATIONS PERTINENT TO THE PLAN OF CARE: YES PATIENT LIVING SITUATION/CAREGIVER STATUS: ALONE SUMMARIZE SKILLED NEED: MEDICATION MANAGEMENT, VITAL SIGN ASSESSMENT, MENTAL STATUS ASSESSMENT AND DIAGNOSIS MANAGEMENT ] Future Scheduled Test SKILLED NU RSE WILL MAINTAIN SITUATIONAL AWARENESS FOR SAFETY AND WILL NOTIFY CLINICAL GOSPEL WORKER AND PHYSICIAN/PROVIDER WITH ANY CHANGE IN CONDITION. [code = SKILLED NURSE WILL MAINTAIN SITUATIONAL AWARENESS FOR SAFETY AND WILL NOTIFY CLINICAL GOSPEL WORKER AND PHYSICIAN/PROVIDER WITH ANY CHANGE IN CONDITION.] Future Scheduled Test SKILLED NU RSE TO REVIEW PATIENT MEDICATIONS. INSTRUCT PATIENT/CAREGIVER ON MONITORING OF EFFECTIVENESS, ADVERSE DRUG REACTIONS, SIDE EFFECTS OF ALL MEDICATIONS (PRESCRIPTION/-OTC), AND HOW AND WHEN TO REPORT PROBLEMS. [code = SKILLED NURSE TO REVIEW PATIENT MEDICATIONS. INSTRUCT PATIENT/CAREGIVER ON MONITORING OF EFFECTIVENESS, ADVERSE DRUG REACTIONS, SIDE EFFECTS OF ALL MEDICATIONS (PRESCRIPTION/-OTC), AND HOW AND WHEN TO REPORT PROBLEMS.] Future Scheduled Test SKILLED NU RSE TO ADMINISTER MEDICATIONS THREE TIMES A WEEK AND PRE-POUR MEDICATIONS TILL NEXT ASSISTED VISIT PER MEDICATION LIST. [code = SKILLED NURSE TO ADMINISTER MEDICATIONS THREE TIMES A WEEK AND PRE-POUR MEDICATIONS TILL NEXT ASSISTED VISIT PER MEDICATION LIST.] Future Scheduled Test SKILLED NU RSE FOR MEDICATION ADMINISTRATION PER MEDICATION LIST TO BE PERFORMED THREE TIMES A WEEK [code = SKILLED NURSE FOR MEDICATION ADMINISTRATION PER MEDICATION LIST TO BE PERFORMED THREE TIMES A WEEK ] Future Scheduled Test SKILLED NU RSE TO PRE-POUR MEDICATION PER MEDICATION LIST TILL NEXT ASSISTED VISIT [code = SKILLED NURSE TO PRE-POUR MEDICATION PER MEDICATION LIST TILL NEXT ASSISTED VISIT ] Future Scheduled Test SKILLED NU RSE FOR O/A AND SKILLED TEACHING RELATED TO MANAGEMENT OF DEPRESSIVE SYMPTOMS AND/OR DEPRESSION. SN TO REPORT SIGNIFICANT CHANGE IN DEPRESSIVE SYMPTOMS TO CLINICAL PROVIDER FOR EARLY INTERVENTION. [code = SKILLED NURSE FOR O/A AND SKILLED TEACHING RELATED TO MANAGEMENT OF DEPRESSIVE SYMPTOMS AND/OR DEPRESSION. SN TO REPORT SIGNIFICANT CHANGE IN DEPRESSIVE SYMPTOMS TO CLINICAL PROVIDER FOR EARLY INTERVENTION.] Future Scheduled Test SKILLED NU RSE FOR O/A OF PATIENT'S RISK FOR VIOLENCE (TOWARD SELF OR OTHERS) AND TO PROVIDE INTERVENTION TECHNIQUES TO PROMOTE SAFETY TO PATIENT AND OTHERS [code = SKILLED NURSE FOR O/A OF PATIENT'S RISK FOR VIOLENCE (TOWARD SELF OR OTHERS) AND TO PROVIDE INTERVENTION TECHNIQUES TO PROMOTE SAFETY TO PATIENT AND OTHERS] Future Scheduled Test SKILLED NU RSE TO ASSESS PATIENTS PSYCHOSOCIAL STATUS TO IDENTIFY POTENTIAL ISSUES THAT MAY COMPLICATE THE PROVISION OF THE PLAN OF CARE INCLUDING THE PATIENTS ABILITY TO ACCESS COMMUNITY RESOURCES AND PSYCHOSOCIAL SUPPORT SERVICES. [code = SKILLED NURSE TO ASSESS PATIENTS PSYCHOSOCIAL STATUS TO IDENTIFY POTENTIAL ISSUES THAT MAY COMPLICATE THE PROVISION OF THE PLAN OF CARE INCLUDING THE PATIENTS ABILITY TO ACCESS COMMUNITY RESOURCES AND PSYCHOSOCIAL SUPPORT SERVICES.] Future Scheduled Test SKILLED NU RSE FOR O/A OF CLIENT'S SOCIAL ISOLATION AND PROVIDE ASSISTANCE TO CLIENT IN DEVELOPMENT OF PLANNED ACTIVITIES [code = SKILLED NURSE FOR O/A OF CLIENT'S SOCIAL ISOLATION AND PROVIDE ASSISTANCE TO CLIENT IN DEVELOPMENT OF PLANNED ACTIVITIES] Future Scheduled Test MEDICATION S WILL BE HELD AND STORED IN LOCKBOX [code = MEDICATIONS WILL BE HELD AND STORED IN LOCKBOX] Goal 2024-01-08 Patient Goal - GETTING STRON MAKI Goal 2024-03-08 Patient Goal - GETTING STRON MAKI Goal 2024-05-08 Patient Goal - GETTING STRON MAKI Goal 2024-07-08 Patient Goal - GETTING STRON MAKI Goal Patient Goal - GETTING STRON MAKI Goal 2023-11-10 Patient Goal - GETTING STRON MAKI Goal 2023-09-11 Patient Goal - GETTING STRON MAKI Goal 2023-07-12 Patient Goal - GETTING STRON MAKI Goal 2023-05-15 Patient Goal - GETTING STRON MAKI Goal 2023-03-14 Patient Goal - GETTING STRON MAKI Goal 2023-01-13 Patient Goal - GETTING STRON MAKI Goal 2022-11-14 Patient Goal - GETTING STRON MAKI Goal 2022-09-16 Patient Goal - GETTING STRON MAKI Goal 2022-07-18 Patient Goal - GETTING STRON MAKI Goal 2022-05-18 Patient Goal - GETTING STRON MAKI Goal 2022-03-19 Patient Goal - GETTING STRON MAKI Goal 2022-01-19 Patient Goal - GETTING STRON MAKI Goal 2021-11-19 Patient Goal - GETTING STRON MAKI Goal 2021-09-20 Patient Goal - GETTING STRON MAKI Goal 2021-07-24 Patient Goal - WALK FREELY Goal 2021-05-26 Patient Goal - WALK FREELY Goal 2021-01-25 Patient Goal - WALK FREELY Goal 2021-03-24 Patient Goal - WALK FREELY Goal Provider Goal - A PLAN OF CARE WILL BE ESTABLISHED THAT MEETS PATIENT'S ASSISTED NEEDS AND INCLUDES PATIENT GOAL FOR HOME HEALTH. Goal Provider Goal - PATIENT/CAREGIVER WILL VERBALIZE/DEMONSTRATE EFFECTIVE HOME SAFETY AND FALL PREVENTION STRATEGIES THROUGHOUT CERTIFICATION PERIOD. Goal Provider Goal - PATIENT/CAREGIVER WILL VERBALIZE UNDERSTANDING OF DISCHARGE PLANNING INSTRUCTIONS BY DATE OF DISCHARGE. Goal Provider Goal - ALTERED MENTAL/BEHAVIORAL STATUS WILL BE IDENTIFIED PROMPTLY AND INTERVENTION INITIATED QUICKLY TO MINIMIZE ASSOCIATED RISKS THROUGHOUT CERTIFICATION PERIOD. Goal Provider Goal - PATIENT WILL REMAIN SAFE, FREE FROM HOSPITALIZATION, AND ADHERE TO THE SKILLED NURSES PLAN OF CARE THROUGHOUT THE CERTIFICATION PERIOD. Goal Provider Goal - PATIENT WILL REMAIN SAFE IN THE COMMUNITY AND WILL BE FREE OF DANGER TO SELF AND OTHERS THROUGHOUT THE CERTIFICATION PERIOD. Goal Provider Goal - PATIENT/CAREGIVER WILL VERBALIZE UNDERSTANDING OF EDUCATION PROVIDED ON MEDICATIONS BY THE END OF THE CERTIFICATION PERIOD. Goal Provider Goal - PATIENT WILL COMPLY WITH MEDICATION WHEN SKILLED NURSE ADMINISTERS AND PRE-POURS MEDICATION THROUGHOUT CERTIFICATION PERIOD. Goal Provider Goal - PATIENT WILL COMPLY WITH MEDICATION WHEN NURSE ADMINISTERS THROUGHOUT CERTIFICATION PERIOD. Goal Provider Goal - PATIENT WILL COMPLY WITH MEDICATION WHEN SKILLED NURSE PRE-POURS MEDICATION THROUGHOUT CERTIFICATION PERIOD. Goal Provider Goal - PATIENT WILL REMAIN SAFE WITHOUT DECOMPENSATION IN DEPRESSIVE CONDITION, WHILE MAINTAINING OPTIMAL LEVEL OF MENTAL HEALTH AND WELL BEING THROUGHOUT CERTIFICATION PERIOD. Goal Provider Goal - PATIENT WILL REMAIN SAFE IN COMMUNITY WITHOUT EVIDENCE OF INJURY/HARM TO SELF OR OTHERS THROUGHOUT CERTIFICATION PERIOD. Goal Provider Goal - PSYCHOSOCIAL NEEDS WILL BE IDENTIFIED AND PLAN IMPLEMENTED TO MINIMIZE RISK THROUGHOUT CERTIFICATION PERIOD. Goal Provider Goal - PATIENT WILL DEMONSTRATE AN INCREASED INTEREST IN SOCIALIZATION AND ACTIVITIES BY THE END OF THE CERTIFICATION PERIOD. Goal Provider Goal - MEDICATION WILL BE STORED IN LOCKBOX FOR SAFETY. Encounters Start Date/Time End Date/Time Encounter Type Admission Type Attending [facility] Facility Care Department Encounter ID Discharge Date Discharge Status Discharge Condition Discharge Reason Percent Goals Met 2020-11-29 00:00:00 2024-09-08 00:00:00 Outpatient RECERTIFIC ATION ULISES HIDALGO [facility] [id number] 4.17
== END 2024-08-28 14:32 | disposition home or self-care (01) ==
PROVIDERS: PCP Internal Medicine; Visit Provider Physician Assistant Surgical
DX: E66.01 Morbid (severe) obesity due to excess calories (principal)
CPT/HCPCS: 99213; G2211

== ENCOUNTER → 2024-08-28 14:03 | Outpatient (BNVA) | payer OTHER, SELFPAY | PROVIDERS: PCP Internal Medicine; Visit Provider Physician Assistant Surgical | DX: E66.01 Morbid (severe) obesity due to excess calories (principal); Z98.84 Bariatric surgery status; Z68.43 Body mass index [BMI] 50.0-59.9, adult | CPT/HCPCS: 99212 ==

== ENCOUNTER 2024-08-30 09:44 | Outpatient (REF) | payer OTHER, SELFPAY ==
[2024-08-30 10:02] LABS: MANUAL DIFF FLAG NO
[2024-08-30 10:40] LABS: Basophils Percent Auto 0.5 % (0-2); Eosinophils Absolute Auto 0.2 X10*3/uL (0.0-0.4); Eosinophils Percent Auto 3.6 % (0-4); Hematocrit 36.9 % (37.0-47.0); Hemoglobin 11.8 g/dl (12.0-16.0); Imm Gran Abs Auto 0.01 X10*3/uL (0.00-0.03); Imm Gran Pct Auto 0.2 % (0.0-0.4); Lymphocytes Absolute Auto 1.5 X10*3/uL (1.2-4.9); Lymphocytes Percent Auto 24.6 % (20-40); Mean Corpuscular Hemoglobin 29.1 pg (27.0-33.0); Mean Corpuscular Volume 91.1 fL (80.0-98.0); Mean Platelet Volume 9.3 fL (9.4-12.3); Monocytes Absolute Auto 0.3 X10*3/uL (0.1-1.2); Monocytes Percent Auto 5.5 % (2-11); Neutrophils Percent Auto 65.6 % (45-73); Platelet Count 218 X10*3/uL (160-400); Red Blood Count 4.05 X10*6/uL (4.20-5.50); Red Cell Distribution Width 15.4 % (11.0-16.0); White Blood Count 6.1 X10*3/uL (4.8-10.8)
[2024-08-30 11:32] LABS: Alanine Aminotransferase 11 U/L (0-31); Albumin Level 4.1 g/dL (3.5-5.0); Alkaline Phosphatase 102 U/L (39-117); Anion Gap 11 (12-20); Aspartate Amino Transferase 18 U/L (5-31); Bilirubin Total 0.3 mg/dL (0.0-1.0); Blood Urea Nitrogen 10 mg/dL (9-16); Calcium 9.6 mg/dL (8.4-10.2); Carbon Dioxide 27 mmol/L (22-29); Chloride 110 mmol/L (96-108); Cholesterol 197 mg/dL (<200); Estimated Glomerular Filt Rate > 60; Glucose Random 79 mg/dL (60-115); HDL Cholesterol 56 mg/dL (>40); Iron 65 mcg/dL (30-160); LDL Cholesterol Calculated 120 mg/dL (<100); Percent Iron Saturation 24 % (15-50); Potassium 4.1 mmol/L (3.3-5.1); Sodium 144 mmol/L (135-145); Total Iron Binding Capacity 272 mcg/dL (228-428); Total Protein 7.2 g/dL (6.5-8.0); Triglycerides 106 mg/dL (<150); Unsaturated Iron Binding 207 ug/dL
[2024-08-30 11:34] LABS: Estimated Average Glucose 97 mg/dL; Hemoglobin A1C 94.1779 umol/L; Total Hemoglobin (HGBA1C) 3005.3962 umol/L
[2024-08-30 11:51] LABS: Ferritin 46 ng/mL (10-250); Insulin 5 uU/mL (2-29); TSH reflex Free T4 2.29 uIU/mL (0.32-4.0); Vitamin D 25-OH Total 31.9 ng/mL (>30)
[2024-08-30 11:55] LABS: Folate 9.6 ng/mL (> or = 4.0); Vitamin B12 464 pg/mL (200-900)
[2024-09-04 02:34] LABS: Zinc 61 mcg/dL (60-130)
[2024-09-05 14:48] LABS: Vitamin A 43 mcg/dL (38-98)
[2024-09-06 15:18] LABS: Vitamin B1 12 nmol/L (8-30)
== END 2024-08-30 09:45 | disposition home or self-care (01) ==
LOC: HO.LAB 09:44
PROVIDERS: PCP Internal Medicine Infectious Disease; Visit Provider Physician Assistant Surgical
DX: E66.01 Morbid (severe) obesity due to excess calories (principal); Z68.41 Body mass index [BMI] 40.0-44.9, adult; E50.9 Vitamin A deficiency, unspecified; K91.2 Postsurgical malabsorption, not elsewhere classified; Z90.3 Acquired absence of stomach [part of]
CPT/HCPCS: 36415; 80053; 80061; 82306; 82607; 82728; 82746; 83036; 83525; 83540; 84425; 84443; 84590; 84630; 85025; 86140

== ENCOUNTER 2024-10-29 14:00 | Outpatient (AMB) | payer OTHER, SELFPAY ==
--- NOTE | 2024-10-29 13:47 | A.OFFVIS_ITS ---
VS Expanded 10/29/24 13:49 Height 5 ft Weight 256 lb BMI 50.0 Intake Visit Reasons: (TV) po lsg 05/19/20 Allergies No Known Allergies Allergy (Verified 08/28/24 14:07) HPI Comments Details: 54-year-old female returns to the office today in follow-up. She is status post sleeve gastrectomy performed 04/29/2020. She is approximately 4 years 6 months postoperative. Weight today is 256 lb with a BMI of 50. She has lost about 7 pounds since her last visit 2 months ago. She states she is not following the meal plan. She states she is eating better mostly Chicken and veg at night, eggs at night. She is not exercising but walks a lot at work. She does not want to do shakes or bars. She has been offered multiple plans multiple times and does not follow through. She does feel as though she is eating better and will continue to try to do so. I have given her information regarding the [employer] meng and she will follow this. I have encouraged her to exercise. recommended plan: celebrate rebuild shakes. Two scoops in 10 oz of unsweetened almond milk at 6-8 am, 9-11 am Zone perfect bar 1-3 pm, 4-6 pm meal at 7 pm 6 forks of protein and 6 forks of veggies drinking 64 oz water, exercise plan: elliptical machine at home bought used [facility] Medical History GERD (gastroesophageal reflux disease) Obesity Obesity Intestinal malabsorption Surgical History Morbid obesity S/P laparoscopic cholecystectomy History of sleeve gastrectomy Hx of lithotripsy History of bladder surgery Hx of section Family History Father Heart disease Heart transplant status Mother Epilepsy Social History Alcohol intake: never Patient Tobacco Use Status: Never used Tobacco Telehealth Telehealth Telehealth Platform: Telephone Location of provider rendering services: practice address Location of patient: address on file Patient Identification confirmed using: Name, : Yes Telehealth method: voice only Patient verbally consented to treatment: Yes Patient verbally consented to billing insurance company: Yes Patient informed of any privacy concerns related to visit: Yes Minutes spent on Phone/Video with Pt.: 10 Assessment & Plan Assessment & Plan (1) Morbid obesity: Code(s): E66.01 - Morbid (severe) obesity due to excess calories Category: Surgical Plan: Patient has been given multiple plans, multiple times. I have written down the plans for her. She has not followed through. She does state that she is ?eating better?. I have given her information regarding the right [employer] meng. she does not want to do shakes or bars anymore. She has not formally exercising. Discussed the importance of exercising and how it relates to weight loss. She does wish to have another appointment, I will arrange for another appointment in approximately 2 months. She was encouraged to text her weights weekly and certainly if she has any questions or concerns.
[2024-10-29 13:49] VITALS: BMI 50.0
--- OUTSIDE RECORDS SUMMARY | 2024-10-29 14:13 | XMS_ITS | Clinical Summary ---
Author Organization [facility] ity Address [address] [place] [address] Care Team Providers Care Mentally Retarded Teacher Name Role Phone Unavailable Primary Care Provider Unavailabl e Social History Tobacco Use Types Packs/Day Years Used Date Smoking Tobacco: Never Assessed Sex and Gender Information Value Date Recorded Sex Assigned at Not on file Gender Identity Not on file Sexual Orientation Not on file Plan of Treatment Health Maintenance Due Date Last Done Comments Breast Cancer Screening 1971 DTaP,Tdap,and Td Vaccines (1 - Tdap) 1990 Hepatitis B Vaccines (1 of 3 - 19+ 3-dose series) 1990 Cervical Cancer Screening: P ap Smear 01/29/1992 Zoster Vaccines (1 of 2) 2021 Colorectal Cancer Screening: Colonoscopy 08/28/2022 Depression Screening 08/28/2022 HIV Screening 08/28/2022 Hepatitis C Screening 08/28/2022 Social Influencers of Health Screening 08/28/2022 COVID-19 Vaccine (2023-2 5 season) 2024 Influenza Vaccine (#1) 2024 HIB Vaccines Aged Out No longer eligi ble based on patient's age to complete this topic HPV Vaccines Aged Out No longer eligi ble based on patient's age to complete this topic Hepatitis A Vaccines Aged Out No long er eligible based on patient's age to complete this topic IPV Vaccines Aged Out No longer eligi ble based on patient's age to complete this topic MMR Vaccines Aged Out No longer eligi ble based on patient's age to complete this topic Meningococcal ACWY Vaccine Aged Out N o longer eligible based on patient's age to complete this topic Pneumococcal Vaccine: Pediat rics (0 to 5 Years) and At-Risk Patients (6 to 64 Years) Aged Out No longer eligible b ased on patient's age to complete this topic RSV Immunization Patients Un dallin 20 months Aged Out No longer eligible b ased on patient's age to complete this topic Varicella Vaccines Aged Out No longer eligible based on patient's age to complete this topic
== END 2024-10-29 14:06 | disposition home or self-care (01) ==
LOC: HO.HBS 14:04
PROVIDERS: PCP Internal Medicine Infectious Disease; Visit Provider Physician Assistant Surgical
DX: E66.813 Obesity, class 3 (principal); Z68.43 Body mass index [BMI] 50.0-59.9, adult
CPT/HCPCS: 98016

== ENCOUNTER → 2024-10-29 14:00 | Outpatient (BNVA) | payer OTHER, SELFPAY | PROVIDERS: PCP Internal Medicine Infectious Disease; Visit Provider Physician Assistant Surgical ==

== ENCOUNTER 2024-12-30 11:25 | Outpatient (AMB) | payer OTHER, SELFPAY ==
--- NOTE | 2024-12-30 11:27 | A.OFFVIS_ITS ---
VS Expanded 12/30/24 11:34 BP 140/65 H Blood Pressure Location Rt brachial Blood Pressure Position Sitting Pulse 63 Pulse Source Pulse Oximeter Temp 97.2 F Temperature Source Temporal Artery Scan Pulse Oximetry 98 Oxygen Delivery Method Room Air Height 5 ft Weight 252 lb BMI 49.2 Body Fat % 49.0 Body Fat Mass 123.6 Fat Free Mass 128.6 Visceral Fat Rating 18.0 Body Water % 36.3 Body Water Mass 91.4 Muscle Mass/Score 122.2 Basal Metabolic Rate/Score 1,830 Intake Visit Reasons: (OV) PO LSG 05/19/20 Allergies No Known Allergies Allergy (Verified 12/30/24 11:33) HPI Comments Details: 54-year-old female returns to the office today in follow-up. She is status post sleeve gastrectomy performed 04/29/2020. She is approximately 4 years 7 months postoperative. Weight today is 252.4 lb with a BMI of 49.3. She has lost about 3.6 pounds since her last visit 2 months ago. She states she is not following the meal plan. She states she is eating better mostly Chicken and veg at night, eggs at night. She is not exercising but walks a lot at work. She does not want to do shakes or bars. She has been offered multiple plans multiple times and does not follow through. She does feel as though she is eating better and will continue to try to do so. She is doing 3 meals per day as she refuses to use shakes or bars anymore. Now that she has tried to come up with her own meal plan and this did not work, she is willing to try something else raisin bran w almond milk or toast or nothing sandwich fish, potatoes w olive oil recommended plan: celebrate rebuild shakes. Two scoops in 10 oz of unsweetened almond milk at 6-8 am, 9-11 am Zone perfect bar 1-3 pm, 4-6 pm meal at 7 pm 6 forks of protein and 6 forks of veggies drinking 64 oz water, exercise plan: working in [employer] walking for the job. has elliptical machine at home but not using. [facility] Medical History GERD (gastroesophageal reflux disease) Obesity Obesity Intestinal malabsorption Surgical History (Updated 12/30/24 @ 11:54 by LUAN Bay) Morbid obesity S/P laparoscopic cholecystectomy History of sleeve gastrectomy Hx of lithotripsy History of bladder surgery Hx of section Family History Father Heart disease Heart transplant status Mother Epilepsy Social History Alcohol intake: never Patient Tobacco Use Status: Never used Tobacco Physical Exam Const General: healthy appearing and no acute distress Resp Effort & Inspection: normal respiratory effort Auscultation: clear to auscultation bilaterally Cardio Rate: regular rate Rhythm: regular rhythm GI Auscultation: normal bowel sounds Extrem General: Yes normal to inspection Assessment & Plan Assessment & Plan (1) History of sleeve gastrectomy: Code(s): Z90.3 - Acquired absence of stomach [part of] Category: Surgical Plan: Change meal plan: Premier protein ready to drink shake Half cup cottage cheese with half cup berries Eight forks of protein and 8 forks of salad or vegetables Yoruba yogurt Encouraged to use her elliptical machine that she has at home daily. Return to clinic in April. Encouraged to text weekly with weights and with any questions or concerns
[2024-12-30 11:34] VITALS: BP 140/65; PULSE 63; TEMP 36.2; O2SAT 98; BMI 49.2
--- OUTSIDE RECORDS SUMMARY | 2024-12-30 13:46 | XMS_ITS | Clinical Summary ---
Author Organization Unknown Care Team Providers Care Lead Developer Name Role Phone CHANCE RODRIGUEZ, LILLI Unavailable Unavailable HARRISON OT, NURYS Unavailable Unavailjoaquim HIDALGO RN, ULISES Unavailable Unavailable MEAGAN OT, THERAPY DISTRIBUTION A CLASS LINEMAN, MARISSA Unavailjoaquim matthews Unavailable FRANKO RN, KAREN Unavailable Unavailable HEBER ([facility] [place]) [facility] [place] - PT, HARSH Unavailable Unavailable DOMINICK RN, HEIDI Unavailable Unavailable Payers Payer Name Policy Type Policy Number Effective Date Expira tion Date [facility] [id number] [place] [id number] [place] - [facility] [id number] Problems Condition Name Condition Details Condition Category [...] 10 mg tablet 11-28 00:00: 00 Yes [id number] 10 mg EVERY AM 10 mg EVERY AM (route: oral) Med Classific ation: Central Nervous System Agents benztropine 0.5 mg tablet 11-28 00:00: 00 02-01 23:59 :00 No [id number] 0.5 mg 2 TIMES DAILY 0.5 mg 2 TIMES DAILY (route: oral) Med Classific ation: Central Nervous System Agents Iron (ferrous sulfate) 325 mg (65 mg iron) tablet 11-28 00:00: 00 11-29 23:59 :00 No [id number] 325 mg EVERY AM 325 mg EVERY AM (route: oral) Med Classific ation: Electroly te Balance-N utritiona l Products lamotrigine 25 mg tablet 11-28 00:00: 00 05-26 23:59 :00 No [id number] 25 mg EVERY AM 25 mg EVERY AM (route: oral) Med Classific ation: Central Nervous System Agents lamotrigine 25 mg tablet 05-25 00:00: 00 02-01 23:59 :00 No [id number] 75 mg DAILY 75 mg DAILY (route: oral) Alternate Route: NONE. Med Classific ation: Central Nervous System Agents levothyroxi ne 75 mcg tablet 11-28 00:00: 00 Yes [id number] 75 mcg EVERY AM 75 mcg EVERY AM (route: oral) Med Classific ation: Endocrine Lexapro 20 mg tablet 11-28 00:00: 00 Yes [id number] 20 mg EVERY AM 20 mg EVERY AM (route: oral) Med Classific ation: Central Nervous System Agents Myrbetriq 50 mg tablet,exte nded release 11-28 00:00: 00 11-29 23:59 :00 No [id number] 50 mg EVERY AM 50 mg EVERY AM (route: oral) Med Classific ation: Genitouri nary Therapy omeprazole 20 mg capsule,del ayed release 11-28 00:00: 00 11-29 23:59 :00 No [id number] 20 capsule EVERY AM 20 capsule EVERY AM (route: oral) Med Classific ation: Gastroint estinal Therapy Agents Vitamin D3 50 mcg (2,000 unit) capsule 11-28 00:00: 00 05-22 23:59 :00 No [id number] 2000 capsule EVERY AM 2000 capsule EVERY AM (route: oral) Med Classific ation: Electroly te Balance-N utritiona l Products Dilaudid 4 mg tablet 11-29 00:00: 00 02-01 23:59 :00 No [id number] 4 mg EVERY 3 HOURS 4 mg EVERY 3 HOURS (route: oral) Med Classific ation: Analgesic , Anti-infl ammatory or Antipyret ic Xarelto 10 mg tablet 11-29 00:00: 00 12-13 23:59 :00 No [id number] 10 mg DAILY 10 mg DAILY (route: oral) Med Classific ation: Hematolog ical Agents hydromorpho ne 4 mg tablet 12-10 00:00: 00 02-01 23:59 :00 No [id number] 4 mg NEEDED 4 mg NEEDED (route: oral) Med Classific ation: Analgesic , Anti-infl ammatory or Antipyret ic meclizine 12.5 mg tablet 2020-09 00:00: 00 02-01 23:59 :00 No [id number] 12.5 mg NEEDED 12.5 mg NEEDED (route: oral) Med Classific ation: Gastroint estinal Therapy Agents polysacchar madonna iron complex 150 mg iron capsule 2020-09 00:00: 00 02-01 23:59 :00 No [id number] 150 mg DAILY 150 mg DAILY (route: oral) Med Classific ation: Electroly te Balance-N utritiona l Products benztropine 1 mg tablet 02-01 00:00: 00 Yes [id number] 1 mg DAILY 1 mg BETTY Y (route: oral) Med Classific ation: Central Nervous System Agents Colace 100 mg capsule 02-01 00:00: 00 Yes [id number] 100 mg NEEDED 100 mg NEEDED (route: oral) Med Classific ation: Gastroint estinal Therapy Agents lamotrigine 200 mg tablet 02-01 00:00: 00 Yes [id number] 200 mg DAILY 200 mg DAILY (route: oral) Med Classific ation: Central Nervous System Agents multivitami n tablet 02-01 00:00: 00 Yes [id number] 1 tablet DAILY 1 tablet DAILY (route: oral) Med Classific ation: Electroly te Balance-N utritiona l Products Protonix 40 mg tablet,benjamin yed release 5-10 00:00: 00 Yes [id number] 40 mg DAILY 40 mg DAILY (route: oral) Med Classific ation: Gastroint estinal Therapy Agents Xarelto 10 mg tablet 2021-09 0 00:00: 00 08-16 23:59 :00 No [id number] 1 tablet DAILY 1 tablet DAILY (route: oral) Med Classific ation: Hematolog ical Agents acetaminoph en 500 mg tablet 2021-09 0 00:00: 00 Yes [id number] 2 tablet EVERY 8 HOURS 2 tablet EVERY 8 HOURS (route: oral) Med Classific ation: Analgesic , Anti-infl ammatory or Antipyret ic iron 325 mg (65 mg iron) tablet 05-18 00:00: 00 Yes [id number] 325 mg DAILY 325 mg DAILY (route: oral) Med Classific ation: Electroly te Balance-N utritiona l Products Vital Signs Vital Name Observation Time Observation Value Commen ts Temperature 2024-11-14 22:27:00.000 98.1 [degF] Temperature 2024-11-11 15:40:00.000 97.5 [degF] Plan of Treatment Planned Activity Planned Date [...] RECEIVING HOMECARE DUE TO NEW ONSET/EXACERBATION OF: NO RECENT HOSPITALIZATION/INPATIENT ADMISSION RELATED TO: NO NEW OR CHANGED MEDICATIONS PERTINENT TO THE PLAN OF CARE: NO PATIENT LIVING SITUATION/CAREGIVER STATUS: ALONE SUMMARIZE SKILLED NEED: MEDICATION MANAGEMENT, VITAL SIGN ASSESSMENT, MENTAL STATUS ASSESSMENT AND DIAGNOSIS MANAGEMENT AND MEDICAL [code = CLINICAL SUMMARY (SOC/RECERT, 10 DAY, 60 DAY): THE PATIENT IS RECEIVING HOMECARE DUE TO NEW ONSET/EXACERBATION OF: NO RECENT HOSPITALIZATION/INPATIENT ADMISSION RELATED TO: NO NEW OR CHANGED MEDICATIONS PERTINENT TO THE PLAN OF CARE: NO PATIENT LIVING SITUATION/CAREGIVER STATUS: ALONE SUMMARIZE SKILLED NEED: MEDICATION MANAGEMENT, VITAL SIGN ASSESSMENT, MENTAL STATUS ASSESSMENT AND DIAGNOSIS MANAGEMENT AND MEDICAL ] Future Scheduled Test SKILLED NU RSE WILL MAINTAIN SITUATIONAL AWARENESS FOR SAFETY AND WILL NOTIFY CLINICAL CHUCKING LATHE OPERATOR AND PHYSICIAN/PROVIDER WITH ANY CHANGE IN CONDITION. [code = SKILLED NURSE WILL MAINTAIN SITUATIONAL AWARENESS FOR SAFETY AND WILL NOTIFY CLINICAL CHUCKING LATHE OPERATOR AND PHYSICIAN/PROVIDER WITH ANY CHANGE IN CONDITION.] [...] A WEEK AND PRE-POUR MEDICATIONS TILL NEXT USP VISIT PER MEDICATION LIST. [code = SKILLED NURSE TO ADMINISTER MEDICATIONS THREE TIMES A WEEK AND PRE-POUR MEDICATIONS TILL NEXT USP VISIT PER MEDICATION LIST.] Future Scheduled Test [...] INTERVENTION.] Future Scheduled Test SKILLED NU RSE TO [...] TO CLIENT IN DEVELOPMENT OF PLANNED ACTIVITIES] Goal 2021-03-24 Patient Goal - WALK FREELY Goal 2021-05-26 Patient Goal - WALK FREELY Goal 2021-07-24 Patient Goal - WALK FREELY Goal 2021-09-20 Patient Goal - GETTING STRON MAKI Goal 2021-11-19 Patient Goal - GETTING STRON MAKI Goal 2024-03-08 Patient Goal - GETTING STRON MAKI Goal 2024-05-08 Patient Goal - GETTING STRON MAKI Goal 2024-07-08 Patient Goal - GETTING STRON MAKI Goal 2024-09-04 Patient Goal - GETTING STRON MAKI Goal 2024-11-07 Patient Goal - GETTING STRON MAKI Goal Patient Goal - GETTING STRON MAKI Goal 2023-03-14 Patient Goal - GETTING STRON MAKI Goal 2023-05-15 Patient Goal - GETTING STRON MAKI Goal 2023-07-12 Patient Goal - GETTING STRON MAKI Goal 2023-09-11 Patient Goal - GETTING STRON MAKI Goal 2023-11-10 Patient Goal - GETTING STRON MAKI Goal 2024-01-08 Patient Goal - GETTING STRON [...] Patient Goal - GETTING STRON MAKI Goal 2021-01-25 Patient Goal - WALK FREELY Goal Provider Goal - A PLAN OF CARE WILL BE ESTABLISHED THAT MEETS PATIENT'S USP NEEDS AND INCLUDES PATIENT GOAL FOR HOME [...] BY THE END OF THE CERTIFICATION PERIOD. Encounters Start Date/Time End Date/Time Encounter Type Admission Type Attending [facility] Care Department Encounter ID Discharge Date Discharge Status Discharge Condition Discharge Reason Percent Goals Met 2020-11-29 00:00:00 2025-01-06 00:00:00 Outpatient RECERTIFIC ATION ULISES HIDALGO [facility] [id number] 13.64
--- OUTSIDE RECORDS SUMMARY | 2024-12-30 13:46 | XMS_ITS | Clinical Summary ---
Author Organization Unknown Care Team Providers Care Metal Fabricator Apprentice Name Role Phone CHANCE RODRIGUEZ, LILLI Unavailable Unavailable HARRISON OT, NURYS Unavailable Unavailjoaquim HIDALGO RN, ULISES Unavailable Unavailable MEAGAN OT, THERAPY TEACHER [employer], MARISSA Unavailjoaquim matthews Unavailable FRANKO RN, KAREN Unavailable Unavailable HEBER ([facility]) [facility] - PT, HARSH Unavailable Unavailable DOMINICK RN, HEIDI Unavailable Unavailable Payers Payer Name Policy Type Policy Number Effective Date Expira tion Date [facility] [id number] [place] [id number] [place] [facility] [id number] Problems Condition Name Condition Details Condition Category [...] 10 mg tablet 11-28 00:00: 00 Yes [id number] 10 mg EVERY AM 10 mg EVERY AM (route: oral) Med Classific ation: Central Nervous System Agents benztropine 0.5 mg tablet 11-28 00:00: 00 02-01 23:59 :00 No [id number] 0.5 mg 2 TIMES DAILY 0.5 mg 2 TIMES DAILY (route: oral) Med Classific ation: Central Nervous System Agents Iron (ferrous sulfate) 325 mg (65 mg iron) tablet 11-28 00:00: 00 11-29 23:59 :00 No [id number] 325 mg EVERY AM 325 mg EVERY AM (route: oral) Med Classific ation: Electroly te Balance-N utritiona l Products lamotrigine 25 mg tablet 11-28 00:00: 00 05-26 23:59 :00 No [id number] 25 mg EVERY AM 25 mg EVERY AM (route: oral) Med Classific ation: Central Nervous System Agents lamotrigine 25 mg tablet 05-25 00:00: 00 02-01 23:59 :00 No [id number] 75 mg DAILY 75 mg DAILY (route: oral) Alternate Route: NONE. Med Classific ation: Central Nervous System Agents levothyroxi ne 75 mcg tablet 11-28 00:00: 00 Yes [id number] 75 mcg EVERY AM 75 mcg EVERY AM (route: oral) Med Classific ation: Endocrine Lexapro 20 mg tablet 11-28 00:00: 00 Yes [id number] 20 mg EVERY AM 20 mg EVERY AM (route: oral) Med Classific ation: Central Nervous System Agents Myrbetriq 50 mg tablet,exte nded release 11-28 00:00: 00 11-29 23:59 :00 No [id number] 50 mg EVERY AM 50 mg EVERY AM (route: oral) Med Classific ation: Genitouri nary Therapy omeprazole 20 mg capsule,del ayed release 11-28 00:00: 00 11-29 23:59 :00 No [id number] 20 capsule EVERY AM 20 capsule EVERY AM (route: oral) Med Classific ation: Gastroint estinal Therapy Agents Vitamin D3 50 mcg (2,000 unit) capsule 11-28 00:00: 00 05-22 23:59 :00 No [id number] 2000 capsule EVERY AM 2000 capsule EVERY AM (route: oral) Med Classific ation: Electroly te Balance-N utritiona l Products Dilaudid 4 mg tablet 11-29 00:00: 00 02-01 23:59 :00 No [id number] 4 mg EVERY 3 HOURS 4 mg EVERY 3 HOURS (route: oral) Med Classific ation: Analgesic , Anti-infl ammatory or Antipyret ic Xarelto 10 mg tablet 11-29 00:00: 00 12-13 23:59 :00 No [id number] 10 mg DAILY 10 mg DAILY (route: oral) Med Classific ation: Hematolog ical Agents hydromorpho ne 4 mg tablet 12-10 00:00: 00 02-01 23:59 :00 No [id number] 4 mg NEEDED 4 mg NEEDED (route: oral) Med Classific ation: Analgesic , Anti-infl ammatory or Antipyret ic meclizine 12.5 mg tablet 2020-09 00:00: 00 02-01 23:59 :00 No [id number] 12.5 mg NEEDED 12.5 mg NEEDED (route: oral) Med Classific ation: Gastroint estinal Therapy Agents polysacchar madonna iron complex 150 mg iron capsule 2020-09 00:00: 00 02-01 23:59 :00 No [id number] 150 mg DAILY 150 mg DAILY (route: oral) Med Classific ation: Electroly te Balance-N utritiona l Products benztropine 1 mg tablet 02-01 00:00: 00 Yes [id number] 1 mg DAILY 1 mg BETTY Y (route: oral) Med Classific ation: Central Nervous System Agents Colace 100 mg capsule 02-01 00:00: 00 Yes [id number] 100 mg NEEDED 100 mg NEEDED (route: oral) Med Classific ation: Gastroint estinal Therapy Agents lamotrigine 200 mg tablet 02-01 00:00: 00 Yes [id number] 200 mg DAILY 200 mg DAILY (route: oral) Med Classific ation: Central Nervous System Agents multivitami n tablet 02-01 00:00: 00 Yes [id number] 1 tablet DAILY 1 tablet DAILY (route: oral) Med Classific ation: Electroly te Balance-N utritiona l Products Protonix 40 mg tablet,benjamin yed release 5-10 00:00: 00 Yes [id number] 40 mg DAILY 40 mg DAILY (route: oral) Med Classific ation: Gastroint estinal Therapy Agents Xarelto 10 mg tablet 2021-09 0 00:00: 00 08-16 23:59 :00 No [id number] 1 tablet DAILY 1 tablet DAILY (route: oral) Med Classific ation: Hematolog ical Agents acetaminoph en 500 mg tablet 2021-09 0 00:00: 00 Yes [id number] 2 tablet EVERY 8 HOURS 2 tablet EVERY 8 HOURS (route: oral) Med Classific ation: Analgesic , Anti-infl ammatory or Antipyret ic iron 325 mg (65 mg iron) tablet 05-18 00:00: 00 Yes [id number] 325 mg DAILY 325 mg DAILY (route: [...] AWARENESS FOR SAFETY AND WILL NOTIFY CLINICAL FIRE SAFETY INSPECTOR AND PHYSICIAN/PROVIDER WITH ANY CHANGE IN CONDITION. [code = SKILLED NURSE WILL MAINTAIN SITUATIONAL AWARENESS FOR SAFETY AND WILL NOTIFY CLINICAL FIRE SAFETY INSPECTOR AND PHYSICIAN/PROVIDER WITH ANY CHANGE IN CONDITION.] [...] A WEEK AND PRE-POUR MEDICATIONS TILL NEXT [facility] VISIT PER MEDICATION LIST. [code = SKILLED NURSE TO ADMINISTER MEDICATIONS THREE TIMES A WEEK AND PRE-POUR MEDICATIONS TILL NEXT [facility] VISIT PER MEDICATION LIST.] Future Scheduled Test [...] CARE WILL BE ESTABLISHED THAT MEETS PATIENT'S [facility] NEEDS AND INCLUDES PATIENT GOAL FOR HOME [...] End Date/Time Encounter Type Admission Type Attending [facility] Care Department Encounter ID Discharge Date Discharge Status Discharge Condition Discharge Reason Percent Goals Met 2020-11-29 00:00:00 2025-01-06 00:00:00 Outpatient RECERTIFIC ATION ULISES HIDALGO [facility] [id number] 13.64
--- OUTSIDE RECORDS SUMMARY | 2024-12-30 13:46 | XMS_ITS | Clinical Summary ---
Author Organization [facility] Address [address] [place] [address] Phone Care Team Providers Care Line Tester Name Role Phone Yehuda Johnson MD Primary Care Provider Allergies Active Allergy Reactions Criticality Noted Date Comments Nsaids (Non-Steroidal Anti-I nflammatory Drug) 11/09/2024 Encounters Date Type Department Care Team Description 11/09/2024 7:31 AM EST - 11/09/2024 9:17 AM EST Emergency [facility] Emergency [address] [place] [address] Fall, initial encounter (Primary Dx); Left leg pain Discharge Disposition: Home or Self Care from Last 3 Months Social History Tobacco Use Types Packs/Day Years Used Date Smoking Tobacco: Never Assessed Comments Unknown Sex and Gender Information Value Date Recorded Sex Assigned at Not on file Legal Sex Female 6:08 AM EST Gender Identity Not on file Sexual Orientation Not on file Last Filed Vital Signs Vital Sign Reading Time Taken Comments Blood Pressure 138/87 11/09/2024 7:25 AM EST Pulse 64 11/09/2024 7:25 AM EST Temperature 37.3 ??C (99.1 ??F) 11/09/2024 7:25 AM ES T Respiratory Rate 18 11/09/2024 7:25 AM EST Oxygen Saturation 98% 11/09/2024 7:25 AM EST Inhaled Oxygen Concentration - - Weight 116 kg (256 lb) 11/09/2024 7:25 AM EST Height 152.4 cm (5') 11/09/2024 7:25 AM EST Body Mass Index 50 11/09/2024 7:25 AM EST Plan of Treatment Health Maintenance Due Date Last Done Comments Breast Cancer Screening 1971 Hepatitis B Vaccines (1 of 3 - 19+ 3-dose series) 1990 Cervical Cancer Screening: Pap Smear 01/29/1992 Pneumococcal Vaccine: 50+ Years (2 of 2 - PCV) 08/10/2021 08/10/2020 Pneumococcal Vaccine: Pediatrics (0 to 5 Years) and At-Risk Patients (6 to 64 Years) (2 of 2 - PCV) 08/10/2021 08/10/2020 Cholesterol Screening (Lipid Panel) 08/28/2022 Colorectal Cancer Screening: Colonoscopy 08/28/2022 Depression Screening 08/28/2022 HIV Screening 08/28/2022 Hepatitis C Screening 08/28/2022 Medicare Annual Wellness Visit 08/28/2022 Social Influencers of Health Screening 08/28/2022 Zoster Vaccines (2 of 2) 09/01/2023 07/07/2023 COVID-19 Vaccine (4 - season) 2024 10/29/2021, 02/15/2021, 01/16/2021 Influenza Vaccine (Season Ended) 2025 08/10/2020, 06/30/2016, 07/27/2015, Additional history exists DTaP,Tdap,and Td Vaccines (4 - Td or Tdap) 03/09/2027 03/09/2017, 03/15/2011, 05/15/2006 HIB Vaccines Aged Out No longer eligi [...] patient's age to complete this topic Meningococcal B Vacine Aged Out No lo nger eligible based on patient's age to complete this topic RSV Immunization Patients Under 20 months Aged Out No longer eligible based on patient's age to complete this topic Varicella Vaccines Aged Out No longer eligible based on patient's age to complete this topic Procedures Procedure Name Priority Date/Time Associated Diagnosis Comments XR HIP 2-3 VIEWS LEFT STAT 11/09/2024 8:42 AM EST from Last 3 Months Results * XR Hip 2-3 Views Left (11/09/2024 8:42 AM EST) Anatomical Region Laterality Modality Lower Extremities, Hip Left Radiograp hic Imaging 11/09/2024 8:51 AM EST Impressions 11/09/2024 8:54 AM EST FINDINGS/IMPRESSION: Two views of the left hip demonstrate no evidence for an acute fracture. ??Anatomic alignment. ??Fallopian tube occlusion devices project in the pelvis. -------- FINAL REPORT -------- Dictated By: Jennie Galindo Dictated Date: 11/09/2024 08:51 ET Assigned Physician: Jennie Galindo Reviewed and Electronically Signed By: Jennie Galindo Signed Date: 11/09/2024 08:54 ET Workstation ID: [id number] Transcribed By: Self Edit Transcribed Date: 11/09/2024 08:51 ET Narrative 11/09/2024 8:54 AM EST XR HIP 2-3 VIEWS LEFT INDICATION: Upper leg trauma, no prior imaging TECHNIQUE: XR HIP 2-3 VIEWS LEFT COMPARISON: No priors available. Procedure Note Jennie Galindo MD - 11/09/2024 XR HIP 2-3 VIEWS LEFT INDICATION: Upper leg trauma, no prior imaging TECHNIQUE: XR HIP 2-3 VIEWS LEFT COMPARISON: No priors available. IMPRESSION: FINDINGS/IMPRESSION: Two views of the left hip demonstrate no evidence shira acute fracture. Anatomic alignment. Fallopian tube occlusion devicesproject in the pelvis. -------- FINAL REPORT -------- Dictated By: Jennie Galindo Dictated Date: 11/09/2024 08:51 ET Assigned Physician: Jennie Galindo Reviewed and Electronically Signed By: Jennie Galindo Signed Date: 11/09/2024 08:54 ET Workstation ID: [id number] Transcribed By: Self Edit Transcribed Date: 11/09/2024 08:51 ET Sol ROLAND IMG XR PROCEDURES Final Result from Last 3 Months Insurance [facility] Member Subscriber Plan / Payer (Ef fective 2018-Present) Name:Hannah Whittaker Relation to Subscriber:Self Name:Hannah Whittaker [place] Payer ID:[id number] Group ID:[id number] Type:Not on file Address: [address] [place] [address] [employer] MEDICARE Member Subscriber Plan / Payer ( fective 2018-Present) Name:Hannah Whittaker [place] Relation to Subscriber:Self Name:Hannah Whittaker Payer ID:[id number] Group ID:Not on file Type:Not on file Address: [address] [place] [address] Care Teams Line Tester Relationship Specialty Start Date End Date Yehuda Johnson MD [address] [place] [address] [phone] PCP - General Internal Medicine 11/09/24
== END 2024-12-30 11:55 | disposition home or self-care (01) ==
LOC: HO.HBS 11:25
PROVIDERS: PCP Internal Medicine Infectious Disease; Visit Provider Physician Assistant Surgical
DX: E66.813 Obesity, class 3 (principal); Z68.42 Body mass index [BMI] 45.0-49.9, adult; Z90.3 Acquired absence of stomach [part of]; Z98.84 Bariatric surgery status
CPT/HCPCS: 99213

== ENCOUNTER → 2024-12-30 11:25 | Outpatient (BNVA) | payer OTHER, SELFPAY | PROVIDERS: PCP Internal Medicine Infectious Disease; Visit Provider Physician Assistant Surgical | DX: E66.9 Obesity, unspecified (principal); Z98.84 Bariatric surgery status; Z68.42 Body mass index [BMI] 45.0-49.9, adult | CPT/HCPCS: 99212 ==

== ENCOUNTER 2025-05-30 09:15 | Outpatient (AMB) | payer OTHER, SELFPAY ==
--- NOTE | 2025-05-30 09:24 | MHC.OFFVISWM ---
VS Expanded 05/30/25 09:31 BP 129/61 Blood Pressure Location Rt brachial Blood Pressure Position Sitting Pulse 65 Pulse Source Pulse Oximeter Temp 95.1 F L Temperature Source Temporal Artery Scan Pulse Oximetry 95 Oxygen Delivery Method Room Air Height 5 ft Weight 252 lb BMI 49.2 Body Fat % 48.2 Body Fat Mass 121.4 Fat Free Mass 130.6 Visceral Fat Rating 18.0 Body Water % 36.8 Body Water Mass 92.8 Muscle Mass/Score 123.8 Basal Metabolic Rate/Score 1,850 Intake Visit Reasons: (OV) PO LSG 05/19/20 [address] Painter Helper Required: No Allergies No Known Allergies Allergy (Verified 05/30/25 09:26) Medication List - Last Reconciled 05/30/25 by LUAN [place] aripiprazole 10 mg PO DAILY benztropine 1 mg PO BID escitalopram oxalate 20 mg PO DAILY ferrous sulfate 325 mg PO Q OTHER DAY lamotrigine 25 mg PO DAILY lamotrigine 200 mg PO DAILY levothyroxine 75 mcg PO DAILY mirabegron ER 50 mg PO DAILY terbinafine HCl 250 mg PO DAILY HPI Comments Details: 54-year-old female returns to the office today in follow-up. She is status post sleeve gastrectomy performed 04/29/2020. She is approximately 5 years 1 month postoperative. Weight today is 252 lb with a BMI of 49.2. She states she is not following the meal plan. She states she is eating better mostly Chicken and veg at night, eggs in the morning. She is not exercising but walks a lot at work. She has been offered multiple plans multiple times and does not follow through. She does feel as though she is eating better and will continue to try to do so. Eggs in the morning skips food until 330-4 pm meal but not measuring jello recommended plan: Premier protein ready to drink shake Half cup cottage cheese with half cup berries 6 forks of protein and 6 forks of salad or vegetables Sammarinese yogurt drinking 64 oz water, exercise plan: working in [employer] walking for the job. has elliptical machine at home but not using. [facility] Medical History GERD (gastroesophageal reflux disease) Obesity Obesity Intestinal malabsorption Surgical History Morbid obesity S/P laparoscopic cholecystectomy History of sleeve gastrectomy Hx of lithotripsy History of bladder surgery Hx of section Family History Father Heart disease Heart transplant status Mother Epilepsy Social History Alcohol intake: never Patient Tobacco Use Status: Never used Tobacco Physical Exam Vital Signs: Last Vital Signs Temp 95.1 F L 05/30/25 09:31 Pulse 65 05/30/25 09:31 BP 129/61 05/30/25 09:31 Pulse Ox 95 05/30/25 09:31 Oxygen Delivery Method Room Air 05/30/25 09:31 BMI result Body Mass Index 49.2 Const General: healthy appearing and no acute distress Resp Effort & Inspection: normal respiratory effort Auscultation: clear to auscultation bilaterally Cardio Rate: regular rate Rhythm: regular rhythm GI Auscultation: normal bowel sounds Extrem General: Yes normal to inspection Assessment & Plan Assessment & Plan (1) History of sleeve gastrectomy: Code(s): Z90.3 - Acquired absence of stomach [part of] Category: Surgical Plan: Again encouraged to follow the meal plan that was given to her. We discussed using Premier protein at her last visit for ease and convenience. Encouraged her not to skip any meals. Encouraged to start her exercise program, she does walk a lot for work but discussed the importance of using her elliptical machine at home and tracking calories burned. She states that she will do this. We will have her return to the office in 3-4 months
[2025-05-30 09:31] VITALS: BP 129/61; PULSE 65; TEMP 35.1; O2SAT 95; BMI 49.2
--- OUTSIDE RECORDS SUMMARY | 2025-05-30 09:59 | XMS_ITS | Clinical Summary ---
Author Organization [facility] Address [address] [place] [address] Phone Care Team Providers Care Office Support Associate Name Role Phone Yehuda Johnson MD Primary Care Provider Allergies Active Allergy Reactions Criticality Noted Date Comments Nsaids (Non-Steroidal Anti-I nflammatory Drug) 11/09/2024 Medications tiZANidine (ZANAFLEX) 4 mg tablet Take 1 tablet (4 mg total) by mouth 3 (three) times a day if needed for muscle spasms for up to 10 days. 30 tablet 05/10/2025 Active Active Problems No known active problems Encounters Date Type Department Care Team Description 05/10/2025 10:00 AM EDT - 05/10/2025 11:31 AM EDT Emergency [facility] [address] [place] [phone] Right leg pain (Primary Dx) Discharge Disposition: Home or Self Care 05/09/2025 Lab Requisition [facility] - Main Lab [address] [facility] [place] [phone] Peña Swanson MD Urinary tract infection, site not specified 03/10/2025 7:31 PM EDT - 03/10/2025 11:21 PM EDT Emergency [facility] Emergency [address] [place] [phone] Mark Velazquez MD Flank pain (Primary Dx) Discharge Disposition: Home or Self Care from Last 3 Months Medical History Medical History Date Comments H/O gastric sleeve Disease of thyroid gland Bipolar 1 disorder ([facility] V24, [facility] V28) Social History Tobacco Use Types Packs/Day Years Used Date Smoking Tobacco: Never Smokeless Tobacco: Never Tobacco Cessation:Counseling Given: Not Answered Comments Unknown Sex and Gender Information Value Date Recorded Sex Assigned at Not on file Legal Sex Female 6:08 AM EST Gender Identity Not on file Sexual Orientation Not on file Obstetrics History Last Filed Vital Signs Vital Sign Reading Time Taken Comments Blood Pressure 104/55 05/10/2025 9:53 AM EDT Pulse 58 05/10/2025 9:53 AM EDT Temperature 36.9 C (98.4 F) 05/10/2025 9:53 AM EDT Respiratory Rate 16 05/10/2025 9:53 AM EDT Oxygen Saturation 95% 05/10/2025 9:53 AM EDT Inhaled Oxygen Concentration - - Weight 113 kg (250 lb) 05/10/2025 9:53 AM EDT Height 152.4 cm (5') 05/10/2025 9:53 AM EDT Body Mass Index 48.82 05/10/2025 9:53 AM EDT Plan of Treatment Health Maintenance Due Date Last Done Comments Breast Cancer Screening 1971 Hepatitis B Vaccines (1 of 3 - 19+ 3-dose series) 1990 Cervical Cancer Screening: Pap Smear 01/29/1992 Pneumococcal Vaccine: 50+ Years (2 of 2 - PCV) 08/10/2021 08/10/2020 Cholesterol Screening (Lipid Panel) 08/28/2022 Colorectal Cancer Screening: Colonoscopy 08/28/2022 HIV Screening 08/28/2022 Hepatitis C Screening 08/28/2022 Medicare Annual Wellness Visit 08/28/2022 Social Influencers of Health Screening 08/28/2022 Zoster Vaccines (2 of 2) 09/01/2023 07/07/2023 Depression Screening 09/25/2024 COVID-19 Vaccine ( season) 2025 10/29/2021, 02/15/2021, 01/16/2021 Influenza Vaccine (#1) 2025 , 06/30/2016, 07/27/2015, Additional history exists DTaP,Tdap,and Td [...] age to complete this topic Meningococcal B Vaccine Aged Out No l onger eligible based on patient's age to complete this topic RSV Immunization Patients Under 20 months Aged Out No longer eligible based on patient's age to complete this topic Varicella Vaccines Aged Out No longer eligible based on patient's age to complete this topic Procedures Procedure Name Priority Date/Time Associated Diagnosis Comments XR PELVIS 1-2 VIEWS STAT 05/10/2025 1 0:19 AM EDT XR FEMUR 2+ VIEWS RIGHT STAT 05/10/2025 10:19 AM EDT CULTURE URINE Routine 05/09/2025 5:31 PM EDT Urinary tract infection, site not specified JAMISON URINE CULTURE TUBE STAT 03/10/2025 9:52 PM EDT URINALYSIS WITH REFLEX MICROSCOPIC AND CULTURE STAT 03/10/2025 9:52 PM EDT URINALYSIS WITH REFLEX MICROSCOPIC AND CULTURE STAT 03/10/2025 9:52 PM EDT CULTURE URINE STAT 03/10/2025 9:[address] ABDOMEN PELVIS WO CONTRAST STAT 03/10/2025 8:54 PM EDT CBC WITH AUTO DIFFERENTIAL STAT 03/10/2025 2:58 PM EDT COMPREHENSIVE METABOLIC PANEL STAT 03/10/2025 2:58 PM EDT CBC AND DIFFERENTIAL STAT 03/10/2025 2:58 PM EDT from Last 3 Months Results * XR Pelvis 1-2 Views (05/10/2025 10:19 AM EDT) Anatomical Region Laterality Modality Body, Pelvis Radiographic Alicia ging 05/10/2025 10:3 1 AM EDT Impressions 05/10/2025 10:32 AM EDT Impression: Stable radiographic appearance of the bony pelvis and bilateral hips. No acute process identified. Telerad LUAN ([id number]) -------- FINAL REPORT -------- Dictated By: Clotilde Santos Dictated Date: 05/10/2025 10:31 ET Assigned Physician: Clotilde Santos Reviewed and Electronically Signed By: Clotilde Santos Signed Date: 05/10/2025 10:32 ET Workstation ID: [id number] Transcribed By: Self Edit Transcribed Date: 05/10/2025 10:31 ET Narrative 05/10/2025 10:32 AM EDT History: Pelvis and right hip pain. No trauma. Comparison: 11/09/24 Findings: An AP view of the pelvis to include both hips is submitted. The pelvic bones are intact. The sacroiliac joints are well-maintained. The hip joints are unremarkable. No acute fracture or osseous destructive lesion is seen. Bilateral fallopian tube occlusion devices are again seen. Procedure Note Clotilde Santos MD - 05/10/2025 History: Pelvis and right hip pain. No trauma. Comparison: 11/09/24 Findings: An AP view of the pelvis to include both hips is submitted. The pelvic bones are intact. The sacroiliac joints are well-maintained.The hip joints are unremarkable. No acute fracture or osseous destructivelesion is seen. Bilateral fallopian tube occlusion devices are again seen. IMPRESSION: Impression: Stable radiographic appearance of the bony pelvis and bilateral hips. Noacute process identified. Telerad PA ([id number]) -------- FINAL REPORT -------- Dictated By: Clotilde Santos Dictated Date: 05/10/2025 10:31 ET Assigned Physician: Clotilde Santos Reviewed and Electronically Signed By: Clotilde Santos Signed Date: 05/10/2025 10:32 ET Workstation ID: [id number] Transcribed By: Self Edit Transcribed Date: 05/10/2025 10:31 ET Deacon ROLAND IMG XR PROCEDURES Final R esult * XR Femur 2+ Views Right (05/10/2025 10:19 AM EDT) Anatomical Region Laterality Modality Lower Extremities, Femur Right Radiogr aphic Imaging 05/10/2025 10:2 9 AM EDT Impressions 05/10/2025 10:30 AM EDT Impression: 1. No acute abnormality identified in the right femur. 2. 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 Eulalia ROLAND ([id number]) -------- FINAL REPORT -------- Dictated By: Clotilde Santos Dictated Date: 05/10/2025 10:29 ET Assigned Physician: Clotilde Santos Reviewed and Electronically Signed By: Clotilde Santos Signed Date: 05/10/2025 10:30 ET Workstation ID: [id number] Transcribed By: Self Edit Transcribed Date: 05/10/2025 10:29 ET Narrative 05/10/2025 10:30 AM EDT History: Right lower extremity pain for 2 weeks. No trauma. Findings: AP and lateral views of the right femur. No acute fracture or dislocation is seen. No osseous destructive lesion is identified. The hip joint is well-maintained. The femoral head contour is smooth. A right total knee prosthesis is noted. The tibial component is only partially imaged. The components appear intact and in satisfactory alignment as visualized. The overlying soft tissues are unremarkable. Procedure Note Clotilde Santos MD - 05/10/2025 History: Right lower extremity pain for 2 weeks. No trauma. Findings: AP and lateral views of the right femur. No acute fracture or dislocation is seen. No osseous destructive lesion isidentified. The hip joint is well-maintained. The femoral head contour issmooth. A right total knee prosthesis is noted. The tibial component is onlypartially imaged. The components appear intact and in satisfactoryalignment as visualized. The overlying soft tissues are unremarkable. IMPRESSION: Impression: 1. No acute abnormality identified in the right femur. 2. 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 Eulalia ROLAND ([id number]) -------- FINAL REPORT -------- Dictated By: Clotilde Sanots Dictated Date: 05/10/2025 10:29 ET Assigned Physician: Clotilde Santos Reviewed and Electronically Signed By: Clotilde Santos Signed Date: 05/10/2025 10:30 ET Workstation ID: [id number] Transcribed By: Self Edit Transcribed Date: 05/10/2025 10:29 ET Deacon ROLAND IMG XR PROCEDURES Final R esult * (ABNORMAL) Culture urine (05/09/2025 5:31 PM EDT) Only the most recent of2 resultswithin the time period is included. Culture, Urine 50,000-100,000 CFU/mL Streptococcus beta-hemolytic Group B(A) 05/10/2025 1:04 PM EDT [facility] Comment: Susceptibility testing is not routinely performed for Beta Streptococcus isolates since these organisms are predictably sensitive to Penicillin. If the Patient is not responding, is allergic to Penicillin, or further therapeutic information is requir ed, please consult an Infectious Disease Specialist. Urine Urine specimen obtained by clean catch procedure / Unknown Non-blood Collection / Unknown 05/09/2025 5:31 PM EDT 05/09/2025 5:32 PM EDT Peña Swanson MD LAB MICROBIOLOGY - GENERAL BRETT DOWNING Final Result [facility] [address] [place] [address], [place] [phone] * (ABNORMAL) Urinalysis with reflex microscopic and culture (03/10/2025 9:52 PM EDT) [facility] Specific [place] Urine 1.014 1.003 - 1.030 LAB URINALYSIS - AUTOMATED METHOD 03/10/2025 10:26 PM [facility] pH, Urine 6.0 5.0 - 8.0 pH LAB URINALYSIS - AUTOMATED METHOD 03/10/2025 10:26 PM [facility] Leukocytes, Urine Trace(A) Negative LAB URINALYSIS - AUTOMATED METHOD 03/10/2025 10:26 PM [facility] Nitrite, Urine Negative Negative LAB URINALYSIS - AUTOMATED METHOD 03/10/2025 10:26 PM [facility] Protein, Urine Negative <=Trace mg/dL LAB URINALYSIS - AUTOMATED METHOD 03/10/2025 10:26 PM [facility] Glucose, Urine Negative Negative mg/dL LAB URINALYSIS - AUTOMATED METHOD 03/10/2025 10:26 PM [facility] Ketones, Urine Negative Negative mg/dL LAB URINALYSIS - AUTOMATED METHOD 03/10/2025 10:26 PM [facility] Urobilinogen, Urine 0.2 0.2 - 1.0 mg/dL LAB URINALYSIS - AUTOMATED METHOD 03/10/2025 10:26 PM [facility] Bilirubin, Urine Negative Negative LAB URINALYSIS - AUTOMATED METHOD 03/10/2025 10:26 PM [facility] Blood, Urine Negative Negative LAB URINALYSIS - AUTOMATED METHOD 03/10/2025 10:26 PM [facility] RBC, Urine 3.2 0 - 4 /HPF LAB URINALYSIS - AUTOMATED METHOD 03/10/2025 10:26 PM [facility] WBC, Urine 3.9 0 - 4 /HPF LAB URINALYSIS - AUTOMATED METHOD 03/10/2025 10:26 PM [facility] Squamous Epithelial, Urine >100(H) 0 - 60 /LPF LAB URINALYSIS - AUTOMATED METHOD 03/10/2025 10:26 PM EDT [facility] Bacteria, Urine Negative Negative /HPF LAB URINALYSIS - AUTOMATED METHOD 03/10/2025 10:26 PM EDT [facility] Hyaline Casts, Urine 0.0 0 - 3 /LPF LAB URINALYSIS - AUTOMATED METHOD 03/10/2025 10:26 PM EDT [facility] Urine Urine specimen obtained by clean catch procedure / Unknown Non-blood Collection / Unknown 03/10/2025 9:52 PM EDT 03/10/2025 10:15 PM EDT Mark Velazquez MD LAB URINE ORDERABLES Final Result Performing Organization Address [facility]/ZIP Co de Phone Number [facility] [address] [place] [address], [place] [phone] * Jamison urine culture tube (03/10/2025 9:52 PM EDT) Extra Tube Hold for add-ons. 03/11/2025 12:01 AM EDT [facility] Comment:Auto resulted. Urine Urine specimen obtained by clean catch procedure / Unknown Non-blood Collection / Unknown 03/10/2025 9:52 PM EDT 03/10/2025 10:15 PM EDT Mark Velazquez MD LAB URINE ORDERABLES Final Result Performing Organization Address [facility]/ZIP Co de Phone Number [facility] [address] [place] [address], [place] [phone] * CT Abdomen Pelvis wo Contrast (03/10/2025 8:54 PM EDT) Anatomical Region Laterality Modality Body Computed Tomogra phy 03/10/2025 9:26 PM EDT Impressions 03/10/2025 9:26 PM EDT 1. No acute inflammatory process identified within the abdomen or pelvis. 2. Nonobstructing bilateral renal calculi. No hydronephrosis or hydroureter. This document has been electronically signed by: Ted Sandoval MD on 03/10/2025 21:26:45 Narrative 03/10/2025 9:26 PM EDT INDICATION: Flank pain, kidney stone suspected CT abdomen and pelvis without contrast Comparison: None Findings: Minimal linear subsegmental atelectasis versus scarring present at the visualized portion of the left lung base. The visualized portion of the right lung base appears clear. The gallbladder is surgically absent. The solid organs are within normal limits. There are nonobstructing bilateral renal calculi. No hydronephrosis or hydroureter. There may be an ectopic insertion of the left ureter. There are mild atrophic changes of the left kidney. No bowel obstruction, pneumoperitoneum, or pneumatosis. There are postsurgical changes of the stomach compatible with prior gastric sleeve procedure. Tiny, fat containing umbilical hernia. Curvilinear radiopaque densities are identified over the pelvis, possibly consistent with fallopian tube prostheses. The bladder is underdistended, mildly limiting its evaluation. No focal bladder wall thickening identified. The appendix does not appear inflamed. The bones are intact. Multilevel degenerative central canal stenosis present at the lumbar spine. Procedure Note Ted Sandoval MD - 03/10/2025 INDICATION: Flank pain, kidney stone suspected CT abdomen and pelvis without contrast Comparison: None Findings: Minimal linear subsegmental atelectasis versus scarring present at the visualized portion of the left lung base. The visualized portion of the right lung base appears clear. The gallbladder is surgically absent. The solid organs are within normal limits. There are nonobstructing bilateral renal calculi. No hydronephrosis or hydroureter. There may be an ectopic insertion of the left ureter. There are mild atrophic changes of the left kidney. No bowel obstruction, pneumoperitoneum, or pneumatosis. There are postsurgical changes of the stomach compatible with prior gastric sleeve procedure. Tiny, fat containing umbilical hernia. Curvilinear radiopaque densities are identified over the pelvis,possibly consistent with fallopian tube prostheses. The bladder isunderdistended, mildly limiting its evaluation. No focal bladder wall thickening identified. The appendix does not appear inflamed. The bones are intact. Multilevel degenerative central canal stenosis present at the lumbar spine. IMPRESSION: 1. No acute inflammatory process identified within the abdomen orpelvis. 2. Nonobstructing bilateral renal calculi. No hydronephrosis or hydroureter. This document has been electronically signed by: Ted Sandoval MD on 03/10/2025 21:26:45 Mark Velazquez MD IMG CT PROCEDURES Final Res ult * (ABNORMAL) CBC auto differential (03/10/2025 2:58 PM EDT) Pathologist [facility] WBC 6.5 4.8 - 10.8 K/mcL LAB HEMETOLOGY METHOD 03/10/2025 3:59 PM EDT [facility] RBC 3.70(L) 3.80 - 4.80 M/mcL LAB HEMETOLOGY METHOD 03/10/2025 3:59 PM EDT [facility] Hemoglobin 11.3(L) 11.5 - 16.0 g/dL LAB HEMETOLOGY METHOD 03/10/2025 3:59 PM EDT [facility] Hematocrit 35.0 35.0 - 47.0 % LAB HEMETOLOGY METHOD 03/10/2025 3:59 PM EDT [facility] MCV 93.6 79.0 - 98.0 FL LAB HEMETOLOGY METHOD 03/10/2025 3:59 PM EDT [facility] MCH 30.2 27.0 - 32.0 pcg LAB HEMETOLOGY METHOD 03/10/2025 3:59 PM EDT [facility] MCHC 32.3 32.0 - 37.0 g/dL LAB HEMETOLOGY METHOD 03/10/2025 3:59 PM EDT [facility] RDW 13.8 11.0 - 15.0 % LAB HEMETOLOGY METHOD 03/10/2025 3:59 PM EDT [facility] Platelets 215 130 - 400 K/mcL LAB HEMETOLOGY METHOD 03/10/2025 3:59 PM EDT [facility] MPV 9.3 7.0 - 11.0 FL LAB HEMETOLOGY METHOD 03/10/2025 3:59 PM EDT [facility] NRBC 0.0 <1.0 % LAB [facility]EMETOLOGY [facility] NR[facility] Absolute 0.00 <0.10 K/mcL LAB HEMETOLOGY METHOD 03/10/2025 3:59 PM EDT [facility] Neutrophils Relative 68.1 % LAB HEMETOLOGY METHOD [facility] Lymphocytes Relative 22.9 % LAB HEMETOLOGY METHOD [facility] Monocytes Relative 4.6 % LAB HEMETOLOGY METHOD [facility]2025 [facility] Eosinophils Relative 3.4 % LAB HEMETOLOGY METHOD 03/10/2025 3:59 PM [facility] Basophils Relative 0.5 % LAB HEMETOLOGY METHOD 03/10/2025 3:59 PM [facility] Immature Granulocytes Relative 0.5 % LAB HEMETOLOGY METHOD [facility]20[facility] Neutrophils Absolute 4.46 1.50 - 7.00 K/mcL LAB HEMETOLOGY METHOD 03/10/2025 3:59 PM EDT [facility] Lymphocytes Absolute 1.50 1.00 - 5.00 K/mcL LAB HEMETOLOGY METHOD [facility]/10[facility]2025 [facility] Monocytes Absolute 0.30 0.20 - 1.00 K/mcL LAB HEMETOLOGY METHOD 03/10/2025 3:[facility] Eosinophils Absolute 0.22 0.00 - 0.50 K/mcL LAB HEMETOLOGY METHOD 03/10/2025 3:59 PM EDT [facility] Basophils Absolute 0.03 0.00 - 0.20 K/[facility] LAB HEMETOLOGY METHOD 03/10/2025 3:59 PM EDT [facility] Immature Granulocytes Absolute 0.03 0.00 - 0.03 K/[facility] LAB HEMETOLOGY METHOD 03/10/2025 3:59 PM EDT [facility] Blood Venous blood specimen / Unknown Venipuncture / Unknown 03/10/2025 2:58 PM EDT 03/10/2025 3:43 PM EDT us Mark Velazquez MD LAB BLOOD ORDERABLES Final Result [facility] [address] [place] [address], * (ABNORMAL) Comprehensive metabolic panel (03/10/2025 2:58 PM EDT) Sodium 139 133 - 145 mmol/L LAB CHEMISTRY METHOD 03/10/2025 4:25 PM [facility] Potassium 3.7 3.5 - 5.5 mmol/L LAB CHEMISTRY METHOD 03/10/2025 4:25 PM [facility] Chloride 108 96 - 110 mmol/L LAB CHEMISTRY METHOD 03/10/2025 4:25 PM [facility] CO2 27 21 - 32 mmol/L LAB CHEMISTRY METHOD 03/10/2025 4:25 PM [facility] Anion Gap 4 3 - 11 LAB CHEMISTRY METHOD 03/10/2025 4:25 PM [facility] Glucose 103(H) 70 - 100 mg/dL LAB CHEMISTRY METHOD 03/10/2025 4:25 PM [facility] BUN 12 5 - 25 mg/dL LAB CHEMISTRY METHOD 03/10/2025 4:25 PM [facility] Creatinine 0.63 0.50 - 1.10 mg/dL LAB CHEMISTRY METHOD 03/10/2025 4:25 PM [facility] eGFR 106 >=60 mL/min/1. 73m2 LAB CHEMISTRY METHOD 03/10/2025 4:25 PM [facility] Comment:Calculation based on the Chronic Kidney Disease Epidemiology Collaboration (CKD-EPI) equation refit without adjustment for race. BUN/Creatinine Ratio 19.0 LAB CHEMISTRY METHOD 03/10/2025 4:25 PM [facility] Calcium 8.7 8.5 - 10.5 mg/dL LAB CHEMISTRY METHOD 03/10/2025 4:25 PM [facility] AST (SGOT) 22 10 - 42 unit/L LAB CHEMISTRY METHOD 03/10/2025 4:25 PM [facility] ALT (SGPT) 20 10 - 60 unit/L LAB CHEMISTRY METHOD 03/10/2025 4:25 PM [facility] Alkaline Phosphatase 111 42 - 121 unit/L LAB CHEMISTRY METHOD 03/10/2025 4:25 PM [facility] Total Protein 6.1 6.0 - 8.0 g/dL LAB CHEMISTRY METHOD 03/10/2025 4:25 PM [facility] Albumin 3.2 3.2 - 5.0 g/dL LAB CHEMISTRY METHOD 03/10/2025 4:25 PM [facility] Total Bilirubin 0.6 0.0 - 1.4 mg/dL LAB CHEMISTRY METHOD 03/10/2025 4:25 PM [facility] Blood Venous blood specimen / Unknown Venipuncture / Unknown 03/10/2025 2:58 PM EDT 03/10/2025 3:43 PM EDT us Mark Velazquez MD LAB BLOOD ORDERABLES Final Result [facility] [address] [place] [address], from Last 3 Months Insurance [employer] Member Subscriber Plan / Payer (Ef fective 2018-Present) Name:HANNAH PETERSEN Relation to Subscriber:Self Name:Hannah Petersen Payer ID:[id number] Group ID:[id number] Type:Not on file Address: [place] [address] [address] [phone] Care Teams Office Support Associate Relationship Specialty Start Date End Date Yehuda Johnson MD [address] [place] [phone] PCP - General Internal Medicine 11/09/24
--- OUTSIDE RECORDS SUMMARY | 2025-05-30 09:59 | XMS_ITS | Encounter Summary ---
Author Organization [facility] Address [address] [place] [address] Care Team Providers Care Highway Worker Name Role Phone Yehuda Johnson MD Primary Care Provider Encounter Details Date Type Department Care Team (Late st Contact Info) Description 05/09/2025 Lab Requisition [facility] - Main Lab [address] [facility] [place] [phone] Peña Swanson MD [address] [phone] Urinary tract infection, site not specified Social History Tobacco Use Types Packs/Day Years Used Date Smoking Tobacco: Never Smokeless Tobacco: Never Comments Unknown Sex and Gender Information Value Date Recorded Sex Assigned at Not on file Legal Sex Female 6:08 AM EST Gender Identity Not on file Sexual Orientation Not on file documented as of this encounter Plan of Treatment Not on file documented as of this encounter Procedures Procedure Name Priority Date/Time Associated Diagnosis Comments CULTURE URINE Routine 05/09/2025 5:31 PM EDT Urinary tract infection, site not specified documented in this encounter Results * (ABNORMAL) Culture urine (05/09/2025 5:31 PM EDT) Culture, Urine 50,000-100,000 CFU/mL Streptococcus beta-hemolytic Group B(A) 05/10/2025 1:04 PM EDT [facility] Comment: Susceptibility testing is not routinely [...] 5:31 PM EDT 05/09/2025 5:32 PM EDT us Peña Swanson MD [facility] Final Result [facility] [address] [place] [address], documented in this encounter Visit Diagnoses Diagnosis Urinary tract infection, site not specified documented in this encounter Care Teams Highway Worker Relationship Specialty Start Date End Date Yehuda Johnson MD [address] [place] [phone] PCP - General Internal Medicine 11/09/24 documented as of this encounter
--- OUTSIDE RECORDS SUMMARY | 2025-05-30 09:59 | XMS_ITS ---
Author Name [facility] Organization Unknown Encounters Encounter Type Encounter Reason Primary Diagnosis Location Date Ambulatory [facility] [place] 05/13/2025
== END 2025-05-30 09:45 | disposition home or self-care (01) ==
LOC: HO.HBS 09:16
PROVIDERS: PCP Internal Medicine Infectious Disease; Visit Provider Physician Assistant Surgical
DX: E66.01 Morbid (severe) obesity due to excess calories (principal); Z68.42 Body mass index [BMI] 45.0-49.9, adult; Z90.3 Acquired absence of stomach [part of]; Z98.84 Bariatric surgery status
CPT/HCPCS: 99213; G2211

== ENCOUNTER → 2025-05-30 09:15 | Outpatient (BNVA) | payer OTHER, SELFPAY | PROVIDERS: PCP Internal Medicine Infectious Disease; Visit Provider Physician Assistant Surgical | DX: Z98.84 Bariatric surgery status (principal); Z90.3 Acquired absence of stomach [part of] | CPT/HCPCS: 99212 ==

== ENCOUNTER 2025-08-07 16:30 | Outpatient (AMB) | payer OTHER, SELFPAY ==
--- NOTE | 2025-08-07 16:31 | A.OFFVIS_ITS ---
VS Expanded 08/07/25 16:34 BP 136/64 Blood Pressure Location Rt brachial Blood Pressure Position Sitting Pulse 77 Pulse Source Pulse Oximeter Temp 97.0 F Temperature Source Temporal Artery Scan Pulse Oximetry 98 Oxygen Delivery Method Room Air Height 5 ft Weight 258 lb BMI 50.4 Body Fat % 49.1 Body Fat Mass 126.6 Fat Free Mass 131.4 Visceral Fat Rating 18.0 Body Water % 36.2 Body Water Mass 93.4 Muscle Mass/Score 124.8 Basal Metabolic Rate/Score 1,870 Intake Visit Reasons: (OV) PO LSG 05/19/20 Allergies No Known Allergies Allergy (Verified 08/07/25 16:35) Medication List - Last Reconciled 08/07/25 by LUAN Jauregui aripiprazole 10 mg PO DAILY benztropine 1 mg PO BID escitalopram oxalate 20 mg PO DAILY ferrous sulfate 325 mg PO Q OTHER DAY lamotrigine 25 mg PO DAILY lamotrigine 200 mg PO DAILY levothyroxine 75 mcg PO DAILY mirabegron ER 50 mg PO DAILY terbinafine HCl 250 mg PO DAILY HPI Comments Details: 54-year-old female returns to the office today in follow-up. She is status post sleeve gastrectomy performed 04/29/2020. She is approximately 5 years 3 month postoperative. Weight today is 258 lb with a BMI of 50.4. Weight gain of 6lb since last OV in May. She does not feel surprised by the weight gain. She had car issues and had to pay $6k in down payments. She states she is not following the meal plan. She states she is eating better mostly Chicken and veg at night, eggs in the morning. She is not exercising but walks a lot at work. She has been offered multiple plans multiple times and does not follow through. She does feel as th ough she is eating better and will continue to try to do so. Eggs in the morning eggs in AM, then turkey or chicken for lunch dinner will have a cooked hot meal- sometimes it's not the greatest ; pasta or meat jello recommended plan: Premier protein ready to drink shake Half cup cottage cheese with half cup berries 6 forks of protein and 6 forks of salad or vegetables Australian yogurt drinking 64 oz water exercise plan: working in [employer] walking for the job. has irisnotetical machine at home but not using. [facility] Medical History GERD (gastroesophageal reflux disease) Obesity Obesity Intestinal malabsorption Surgical History Morbid obesity S/P laparoscopic cholecystectomy History of sleeve gastrectomy Hx of lithotripsy History of bladder surgery Hx of section Family History Father Heart disease Heart transplant status Mother Epilepsy Social History Alcohol intake: never Patient Tobacco Use Status: Never used Tobacco Physical Exam Vital Signs: Last Vital Signs Temp 97.0 F 08/07/25 16:34 Pulse 77 08/07/25 16:34 BP 136/64 08/07/25 16:34 Pulse Ox 98 08/07/25 16:34 Oxygen Delivery Method Room Air 08/07/25 16:34 BMI result Body Mass Index 50.4 Assessment & Plan Assessment & Plan (1) Morbid obesity: Code(s): E66.01 - Morbid (severe) obesity due to excess calories Category: Surgical (2) History of sleeve gastrectomy: Code(s): Z90.3 - Acquired absence of stomach [part of] Category: Surgical Plan We discussed GLP1 medications. I told pt I did not feel comfortable prescribing these for her until she was able to be more consistent with meal plan and a dequate protein intake. She is willing to try Fairlife shakes and will let me know. If not we can use Celebrate protein powder which pt had used in the past and liked. We will have her return to the office in 3-4 months.
[2025-08-07 16:34] VITALS: BP 136/64; PULSE 77; TEMP 36.1; O2SAT 98; BMI 50.4
--- OUTSIDE RECORDS SUMMARY | 2025-08-07 18:53 | XMS_ITS | Encounter Summary ---
Author Organization [facility] Address [address] [place] [address] Care Team Providers Care Support Analyst Name Role Phone Yehuda Johnson MD Primary Care Provider Encounter Details Date Type Department Care Team (Late st Contact Info) Description 05/09/2025 Lab Requisition [facility] - Main Lab [address] [facility] [place] [phone] Peña Swanson MD [address] [phone] Urinary tract infection, site not specified Social [...] beta-hemolytic Group B(A) 05/10/2025 1:[address] [facility] Comment: Susceptibility testing is not [...] us Peña Swanson MD LAB MICROBIOLOGY - GENERAL BRETT DOWNING Final Result [facility] [address] [place] [address], documented in this encounter Visit Diagnoses Diagnosis Urinary tract infection, site not specified documented in this encounter Care Teams Support Analyst Relationship Specialty Start Date End Date Yehuda Johnson MD [address] [place] [address] PCP - General Internal Medicine 11/09/24 documented as of this encounter
--- OUTSIDE RECORDS SUMMARY | 2025-08-07 18:53 | XMS_ITS | Clinical Summary ---
Author Organization [facility] Address [address] [place] [address] Phone Care Team Providers Care C Web Developer Name Role Phone Yehuda Johnson MD Primary [...] Encounters Date Type Department Care Team Description 07/29/2025 6:12 PM EST - 07/29/2025 9:05 PM EST Emergency [facility] Emergency [address] [place] [phone] Joni Francisco MD Other fatigue (Primary Dx) Discharge Disposition: Home or Self Care 05/10/2025 10:00 AM EDT - 05/10/2025 11:31 AM EDT Emergency [facility] Emergency [address] [place] [address] Right leg pain (Primary Dx) Discharge Disposition: Home or Self Care 05/09/2025 Lab Requisition [facility] - Main Lab [address] [facility] [place] [address] Peña Swanson MD Urinary tract infection, site not specified from Last 3 Months Medical History Medical History Date Comments H/O gastric sleeve Disease of thyroid gland Bipolar 1 disorder (CMS/HCC V24, [facility] V28) Social History Tobacco Use Types [...] Sign Reading Time Taken Comments Blood Pressure 121/63 07/29/2025 8:44 PM EST Pulse 71 07/29/2025 8:44 PM EST Temperature 36.7 C (98 F) 07/29/2025 8:44 PM EST Respiratory Rate 18 07/29/2025 8:44 PM EST Oxygen Saturation 100% 07/29/2025 8:44 PM EST Inhaled Oxygen Concentration - - Weight 111 kg (245 lb) 07/29/2025 4:01 PM EST Height 152.4 cm (5') 07/29/2025 4:01 PM EST Body Mass Index 47.85 07/29/2025 4:01 PM EST Plan of Treatment Health Maintenance Due Date Last Done Comments Breast Cancer Screening 1971 Colorectal Cancer Screening: Colonoscopy 1971 Hepatitis B Vaccines (1 of 3 - 19+ 3-dose series) 1990 Cervical Cancer Screening: Pap Smear 01/29/1992 RSV Immunization Adult Patients (1 - Risk 50-74 years 1-dose series) 2021 Pneumococcal Vaccine: 50+ Years (2 of 2 - PCV) 08/10/2021 08/10/2020 Cholesterol Screening (Lipid Panel) 08/28/2022 HIV Screening 08/28/2022 Hepatitis C Screening 08/28/2022 Medicare Annual Wellness Visit 08/28/2022 Social Influencers of Health Screening 08/28/2022 Zoster Vaccines (2 of 2) 09/01/2023 07/07/2023 Depression Screening 09/25/2024 COVID-19 Vaccine (4 - season) 2025 10/29/2021, 02/15/2021, 01/16/2021 Influenza Vaccine [...] Procedure Name Priority Date/Time Associated Diagnosis Comments ECG ANNOTATED 07/30/2025 ECG OUTSIDE 07/30/2025 ECG 12-LEAD STAT 07/29/2025 6:30 PM EST CBC WITH AUTO DIFFERENTIAL STAT 07/29/2025 4:25 PM EST MAGNESIUM STAT 07/29/2025 4:25 PM EST BASIC METABOLIC PANEL STAT 07/29/2025 4:25 PM EST CBC AND DIFFERENTIAL STAT 07/29/2025 4:25 PM EST XR PELVIS 1-2 VIEWS STAT 05/10/2025 1 0:19 AM EDT XR FEMUR 2+ VIEWS RIGHT STAT 05/10/2025 10:19 AM EDT CULTURE URINE Routine 05/09/2025 5:31 PM EDT Urinary tract infection, site not specified from Last 3 Months Results * ECG-Outside (07/30/2025) us Provider Onbase MD ECG ORDERABLES Final Result * ECG-Annotated (07/30/2025) Provider Onbase MD ECG ORDERABLES Final Result * ECG 12 lead (07/29/2025 6:30 PM EST) Ventricular Rate ECG 53 BPM GEMUSE Atrial Rate 53 BPM GEMUSE P-R Interval 176 ms GEMUSE QRS Duration 96 ms GEMUSE Q-T Interval 422 ms GEMUSE QTc 395 ms GEMUSE P Wave Camilla 25 degrees GEMUSE R Camilla 32 degrees GEMUSE T Camilla -10 degrees GEMUSE ECG Interpretation Sinus bradycardia Otherwise normal ECG When compared with ECG of 22-JUN-2024 02:10, Vent. rate has decreased BY 26 BPM Confirmed by Eliazar MCKEON JOHN ([id number]) on 07/30/2025 3:04:41 PM GEMUSE 07/29/2025 6:30 PM EST 07/30/2025 3:04 PM EST Sol ROLAND ECG ORDERABLES Final Re sult GEMUSE * CBC auto differential (07/29/2025 4:25 PM EST) Pathologist [facility] WBC 6.8 4.8 - 10.8 K/mcL LAB HEMETOLOGY METHOD 07/29/2025 4:52 PM [facility] RBC 4.00 3.80 - 4.80 M/mcL LAB HEMETOLOGY METHOD 07/29/2025 4:52 PM [facility] Hemoglobin 12.1 11.5 - 16.0 g/dL LAB HEMETOLOGY METHOD 07/29/2025 4:52 PM [facility] Hematocrit 37.6 35.0 - 47.0 % LAB HEMETOLOGY METHOD 07/29/2025 4:52 PM [facility] MCV 94.0 79.0 - 98.0 FL LAB HEMETOLOGY METHOD 07/29/2025 4:52 PM [facility] MCH 30.3 27.0 - 32.0 pcg LAB HEMETOLOGY METHOD 07/29/2025 4:52 PM [facility] MCHC 32.2 32.0 - 37.0 g/dL LAB HEMETOLOGY METHOD 07/29/2025 4:52 PM [facility] RDW 13.8 11.0 - 15.0 % LAB HEMETOLOGY METHOD 07/29/2025 4:52 PM [facility] Platelets 200 130 - 400 K/mcL LAB HEMETOLOGY METHOD 07/29/2025 4:52 PM [facility] MPV 9.0 7.0 - 11.0 FL LAB HEMETOLOGY METHOD 07/29/2025 4:52 PM [facility] NRBC 0.0 <1.0 % LAB HEMETOLOGY METHOD 07/29/2025 4:52 PM [facility] NRBC Absolute 0.00 <0.10 K/mcL LAB HEMETOLOGY METHOD 07/29/2025 4:52 PM [facility] Neutrophils Relative 62.2 % LAB HEMETOLOGY METHOD 07/29/2025 4:52 PM [facility] Lymphocytes Relative 28.6 % LAB HEMETOLOGY METHOD 07/29/2025 4:52 PM [facility] Monocytes Relative 5.6 % LAB HEMETOLOGY METHOD 07/29/2025 4:52 PM [facility] Eosinophils Relative 2.9 % LAB HEMETOLOGY METHOD 07/29/2025 4:52 PM [facility] Basophils Relative 0.4 % LAB HEMETOLOGY METHOD 07/29/2025 4:52 PM [facility] Immature Granulocytes Relative 0.3 % LAB HEMETOLOGY METHOD 07/29/2025 4:[address] [facility] Neutrophils Absolute 4.24 1.50 - 7.00 K/mcL LAB HEMETOLOGY METHOD 07/29/2025 4:[address] [facility] Lymphocytes Absolute 1.95 1.00 - 5.00 K/mcL LAB HEMETOLOGY METHOD 07/29/2025 4:[address] [facility] Monocytes Absolute 0.38 0.20 - 1.00 K/mcL LAB HEMETOLOGY METHOD 07/29/2025 4:[address] [facility] Eosinophils Absolute 0.20 0.00 - 0.50 K/[facility] LAB HEMETOLOGY METHOD 07/29/2025 4:[address] [facility] Basophils Absolute 0.03 0.00 - 0.20 K/mcL LAB HEMETOLOGY METHOD 07/29/2025 4:52 PM [facility] Immature Granulocytes Absolute 0.02 0.00 - 0.03 K/[facility] LAB HEMETOLOGY METHOD 07/29/2025 4:[address] [facility] Blood Venous blood specimen / Unknown Venipuncture / Unknown 07/29/2025 4:25 PM EST 07/29/2025 4:42 PM EST Sol ROLAND LAB BLOOD ORDERABLES Fin al Result [facility] [address] [place] [address], * Magnesium (07/29/2025 4:25 PM EST) Magnesium 2.1 1.9 - 2.6 mg/dL LAB CHEMISTRY METHOD 07/29/2025 5:[address] [facility] Blood Venous blood specimen / Unknown Venipuncture / Unknown 07/29/2025 4:25 PM EST 07/29/2025 4:42 PM EST Sol ROLAND LAB BLOOD ORDERABLES Fin al Result [facility] [address] [place] [address], * (ABNORMAL) Basic metabolic panel (07/29/2025 4:25 PM EST) Sodium 141 133 - 145 mmol/L LAB CHEMISTRY METHOD 07/29/2025 5:21 PM [facility] Potassium 3.9 3.5 - 5.5 mmol/L LAB CHEMISTRY METHOD 07/29/2025 5:21 PM [facility] Chloride 107 96 - 110 mmol/L LAB CHEMISTRY METHOD 07/29/2025 5:21 PM [facility] CO2 32 21 - 32 mmol/L LAB CHEMISTRY METHOD 07/29/2025 5:21 PM [facility] Anion Gap 2(L) 3 - 11 LAB CHEMISTRY METHOD 07/29/2025 5:21 PM [facility] Glucose 95 70 - 100 mg/dL LAB CHEMISTRY METHOD 07/29/2025 5:21 PM [facility] BUN 12 5 - 25 mg/dL LAB CHEMISTRY METHOD 07/29/2025 5:21 PM [facility] Creatinine 0.69 0.50 - 1.10 mg/dL LAB CHEMISTRY METHOD 07/29/2025 5:21 PM [facility] eGFR 103 >=60 mL/min/1. 73m2 LAB CHEMISTRY METHOD 07/29/2025 5:21 PM [facility] Comment:Calculation based on the Chronic Kidney Disease Epidemiology Collaboration (CKD-EPI) equation refit without adjustment for race. BUN/Creatinine Ratio 17.4 LAB CHEMISTRY METHOD 07/29/2025 5:21 PM [facility] Calcium 9.2 8.5 - 10.5 mg/dL LAB CHEMISTRY METHOD 07/29/2025 5:21 PM [facility] Blood Venous blood specimen / Unknown Venipuncture / Unknown 07/29/2025 4:25 PM EST 07/29/2025 4:42 PM EST us Sol ROLAND LAB BLOOD ORDERABLES Fin al Result [facility] [address] [place] [address], * XR Pelvis 1-2 Views (05/10/2025 10:19 AM EDT) Anatomical Region Laterality Modality Body, Pelvis Radiographic Alicia ging 05/10/2025 10:3 1 AM EDT Impressions 05/10/2025 10:32 AM EDT Impression: Stable radiographic appearance of the bony pelvis and bilateral hips. No acute process identified. Telerad LUAN ([id number]) -------- FINAL REPORT -------- Dictated By: Clotilde Santos Dictated Date: 05/10/2025 10:31 ET Assigned Physician: Clotilde Santos Reviewed and Electronically Signed By: Clotilde Santos Signed Date: 05/10/2025 10:32 ET Workstation ID: [id number] Transcribed By: Self Edit Transcribed Date: 05/10/2025 [...] bilateral hips. Noacute process identified. Telerad PA ([id number]) -------- FINAL REPORT -------- Dictated By: Clotilde Santos Dictated Date: 05/10/2025 10:31 ET Assigned Physician: Clotilde Santos Reviewed and Electronically Signed By: Clotilde Santos Signed Date: 05/10/2025 10:32 ET Workstation ID: [id number] Transcribed By: Self Edit Transcribed Date: 05/10/2025 [...] 2. 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 Telerad PA ([id number]) -------- FINAL REPORT -------- Dictated By: Clotilde Santos Dictated Date: 05/10/2025 10:29 ET Assigned Physician: Clotilde Santos Reviewed and Electronically Signed By: Clotilde Santos Signed Date: 05/10/2025 10:30 ET Workstation ID: [id number] Transcribed By: Self Edit Transcribed Date: 05/10/2025 [...] total knee prosthesis in place. Eulalia ROLAND ([id number]) -------- FINAL REPORT -------- Dictated By: Clotilde Santos Dictated Date: 05/10/2025 10:29 ET Assigned Physician: Clotilde Santos Reviewed and Electronically Signed By: Clotilde Santos Signed Date: 05/10/2025 10:30 ET Workstation ID: [id number] Transcribed By: Self Edit Transcribed Date: 05/10/2025 10:29 ET Deacon ROLAND IMG XR PROCEDURES Final R esult * (ABNORMAL) Culture urine (05/09/2025 5:31 PM EDT) Culture, Urine 50,000-100,000 CFU/mL Streptococcus beta-hemolytic Group B(A) 05/10/2025 1:[address] [facility] Comment: Susceptibility testing is not [...] - GENERAL BRETT DOWNING Final Result [facility] [address] [place] [address], from Last 3 Months Insurance [employer] Member Subscriber Plan / Payer (Ef fective 2018-Present) Name:HANNAH PETERSEN Relation to Subscriber:Self Name:Hannah Petersen Payer ID:[id number] Group ID:[id number] Type:Not on file Address: [place] [address] [address] Care Teams C Web Developer Relationship Specialty Start Date End Date Yehuda Johnson MD [address] [place] [address] PCP - General Internal Medicine 11/09/24
--- OUTSIDE RECORDS SUMMARY | 2025-08-07 18:53 | XMS_ITS | Data Portability ---
Author Organization [place] - [facility], Allergy Address [address] [place] [phone] Assessment Encounter Date Assessment Date Assessment LastModified by Organization Details LastModified Time 01/01/2025 01/01/2025 Patient with episodic positionally induced vertigo. [place] was positive for vertigo and rotary nystagmus with the head to the left. 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 The pathophysiology of BPPV was discussed in detail. Patient was provided with a referral to [facility] for Jovon maneuvers and vestibular therapy.We discussed the fact that treatment of BPPV can require anywhere from 1 to 6 treatments for successful results, and has approximately 95% success rate in eliminating symptoms. BPPV can recur and if the classic positionally induced symptoms do recur, patient can call for further referrals. She has stable hearing compared with previous testing from 2017. [email or web address] Not available 01/01/2025 15:13:31 Plan of Treatment Reminders Order Date Submit Date Provider Last Modified By Organization Details Last Modified Time Details Appointments None record ed. Lab None record ed. Referral None record ed. Procedures None record ed. Surgeries None record ed. Imaging None record ed. Medication Orders None record ed. Patient TargetsNo targets recorded. Patient InstructionsNo instructions recorded. Reason for Referral None Reported. Results Created Date Observation Date Name Description Value Unit Range Abnormal Flag Note LastModifiedBy Organization Detail LastModifiedTime 01/03/20 25 audio gram No observ ation record ed. BARCODE Not Available 2024 09:28:59 Result Notes None recorded. Problems Name Problem SNOMED Code Status Onset Date Resolution Date Notes Provider Name and Address Organization Details Recorded Time Sensorine ural hearing loss of bilateral ears 976607077 Active 2016 Sensorine ural hearing loss, bilateral ; Note: Date Diagnosed : 7 11:09 AM (H90.3) Not Available [facility] 4 03:24:12 Impacted cerumen of bilateral ears [id number] 25268 Active 2016 Impacted cerumen, bilateral ; Note: Date Diagnosed : 7 10:21 AM (H61.23) Not Available [facility] 4 03:24:12 Dysphonia 74775446 Active 2016 Hoarsenes s; Note: Date Diagnosed : 7 2:51 PM (R49.0) Not Available [facility] 4 03:24:11 Dysphagia 78141791 Active 2016 Other dysphagia ; Note: Date Diagnosed : 7 2:50 PM (R13.19) Not Available [facility] 4 03:24:11 Dizziness and giddiness 255206316 Active 2024 AMNA GAO MD [address] [place] [address], [phone] , [facility] 5 11:14:31 Problem Notes None recorded. Procedures Surgical History Date Name Laterality Status Provider Name and Address Organization Details Recorded Time 01/01/2025 Comp Audio with Tymps - 57497 & 18049 completed Mirela SALEEM [address] [place] [address], [phone], [facility] 01/01/2025 14:47:55 Imaging Results None recorded. Procedure Notes None recorded. Medical Equipment None Reported. Allergies Allergen ID Allergen Name Allergen Category Reaction Reaction Severity Criticality Documentation Date Start Date Code Code System Note Provider Name and Address Organization Details Recorded Time 965947 Non-stero idal anti-infl ammatory agent (substanc e) medicatio n Not available Not available Not available 01/01/2025 87440 500[address] SNOM[address] OREN nuñez [facility] 5 15:00:18 Medications Name Sig Start Date Stop Date Status Note LastModified by Organization Details LastModified Time benztropi ne 0.5 mg tablet TAKE 1 TABLET BY MOUTH EVERYDAY AT BEDTIME active Not Available Not Available No t Available lamotrigi ne 200 mg tablet TAKE 1 TABLET BY MOUTH EVERY DAY active Not Available Not Available No t Available cefpodoxi me 200 mg tablet TAKE 1 TABLET BY MOUTH TWICE A DAY 01/01 completed Not Available Not Available Not Available Cogentin 1 mg/mL injection solution 2016 active Medicati on ID: [id number] B rand Name: Cogentin Send Method: E-Prescr ibed Sub s Allowed: subs OK Medic ationGen ericName : Cogentin Not Available Not Available Not Available cephalexi n 250 mg capsule TAKE 1 CAPSULE BY MOUTH EVERY DAY 01/01 completed Not Available Not Available Not Available sulfameth oxazole 800 mg-trimet hoprim 160 mg tablet TAKE 1 TABLET BY MOUTH EVERY 12 HOURS 01/01 completed Not Available Not Available Not Available omeprazol e 40 mg capsule,d elayed release 2016 active Medicati on ID: [id number] D uration Value: 30 Brand Name: omeprazo le Send Method: E-Prescr ibed Sub s Allowed: subs OK Speci al Instruct ion: TAKE ONE CAPSULE BY MOUTH EVERY DAY Medi cationGe nericNam e: omeprazo le Not Available Not Available Not Available levothyro xine 75 mcg tablet TAKE 1 TABLET BY MOUTH EVERY DAY active Not Available Not Available No t Available terbinafi ne HCl 250 mg tablet TAKE 1 TABLET BY MOUTH EVERY DAY active Not Available Not Available No t Available meclizine 25 mg tablet TAKE 1 TABLET BY MOUTH EVERY 12 HOURS FOR 3 DAYS active Not Available Not Available No t Available benztropi ne 1 mg tablet TAKE 1 TABLET BY MOUTH TWICE A DAY active Not Available Not Available No t Available ibuprofen 600 mg tablet TAKE 1 TABLET BY MOUTH EVERY 8 HOURS NEEDED FOR PAIN active Not Available Not Available No t Available estradiol 0.01% (0.1 mg/gram) vaginal cream APPLY A DIME-SIZ ED AMOUNT TO EXTERNAL VAGINAL TISSUE 3 DAYS A WEEK active Not Available Not Available No t Available levofloxa keke 750 mg tablet TAKE 1 TABLET BY MOUTH EVERY DAY 01/01 completed Not Available Not Available Not Available albuterol sulfate HFA 90 mcg/actua tion aerosol inhaler INHALE 1 PUFF BY MOUTH 4 TIMES A DAY active Not Available Not Available No t Available ferrous sulfate 325 mg (65 mg iron) tablet,de layed release TAKE 1 TABLET BY MOUTH EVERY OTHER DAY active Not Available Not Available No t Available fluoxetin e 20 mg capsule 2016 active Medicati on ID: [id number] D uration Value: 30 Brand Name: fluoxeti ne Send Method: E-Prescr ibed Sub s Allowed: subs OK Speci al Instruct ion: TAKE 4 CAPSULES EVERY DAY Medi cationGe nericNam e: fluoxeti ne Not Available Not Available Not Available clotrimaz ole 1 % topical cream TOPICALL Y 2 TIMES A DAY TO AFFECTED AREA OF SKIN. active Not Available Not Available No t Available escitalop sangeetha 20 mg tablet TAKE 1 TABLET BY MOUTH EVERY DAY active Not Available Not Available No t Available aripipraz ole 10 mg tablet TAKE 1 TABLET BY MOUTH EVERY DAY active Not Available Not Available No t Available aripipraz ole 20 mg tablet 01/01 completed Medicati on ID: [id number] D uration Value: 30 Brand Name: aripipra zole Sen d Method: E-Prescr ibed Sub s Allowed: subs OK Medic ationGen ericName : aripipra zole Not Available Not Available Not Available diclofena c 1 % topical gel APPLY 1 APPLICAT ION TOPICALL Y 4 TIMES A DAY NEEDED FOR MODERATE PAIN active Not Available Not Available No t Available mirabegro n ER 50 mg tablet,ex tended release 24 hr TAKE 1 TABLET BY MOUTH EVERY DAY DO NOT CRUSH OR CHEW active Not Available Not Available No t Available Vitals Date Recorded Body height Body mass index (BMI) Body weight Provider Name and Address Organization Details Last Updated DateTime 01/01/2025 152.4 cm 48.8 kg/m2 926588.09 g [facility] 01/01/2025 15:00:10 Social History None recorded. Functional Status None recorded. Mental Status None recorded. Family History Nothing Reported. Medical History No medical history recorded. Gynecological HistoryNo gynecological history recorded. Obstetrics History GPAL:G 0 P 0 0 0 0 Past Encounters Encounter ID Performer Location Encounter Start Date Encounter Closed Date Diagnosis/Indication Diagnosis SNOMED-CT Code Diagnosis ICD10 Code Diagnosis IMO Codes Diagnosis Note [id number] AMNA GAO MD [facility] [address] [place] [address] 01/01/2025 14:01:38 01/01/2025 18:49:27 Dizziness and giddiness 995619008 R42 Patient has begun to work with vestibular rehab and is awaiting scheduling of her therapy appointmen ts Sensorineu ral hearing loss of bilateral ears 427656734 H90.3 Audiologic al evaluation results:Ri ght ear:Modera te rising to a mild sloping to a moderate sensorineu ral hearing loss with good word recognitio n.Left ear:Modera te rising to a mild sensorineu ral hearing loss with excellent word recognitio n. Tympanomet ry:Right Ear:Type ALeft Ear:Type As Health Concerns Section Related Observation LastModified by Organization Detai ls LastModified Time None Recorded Concern Status LastModified by Organization Details LastModified Time None Recorded Advance Directives Directive None Recorded Payers Insurance Date Sequence Insurance Name Policy Number Policy Odom Covered Member ID Odom Member ID Guarantor Name 01/01/2025 2 [place] [facility] [employer] [id number] [employer] 01/01/2025 1 FORMERLY [facility] - DOS ON OR AFTER 2022 - ONE CARE (MEDICARE REPLACEMENT/A DVANTAGE - HMO) [employer] [id number] [employer] Notes Date Note Type Note Provider Name and Address Organization Details Recorded Time 01/01/2025 text/html ROS as noted in the HPI dizzySpins when lays on bed.If raises head of bed the spins do not occurcan occur daily, brief and intensemet with vestibular rehab yesterday and is in process of scheduling therapy feels hearing is changing over time works on dementia unit AMNA GAO MD [address] [address], [place], [phone], [facility] - [facility] 01/01/2025 15:13:45 OBGyn Episode No OBEpisode recorded.
--- OUTSIDE RECORDS SUMMARY | 2025-09-02 19:00 | XMS_ITS | Clinical Summary ---
Author Organization Unknown Care Team Providers Care Game Programer Name Role Phone HONG RODRIGUEZ, ARNOLD Unavailable Unavailable HARRISON OT, NURYS Unavailable Unavailjoaquim HIDALGO RN, ULISES Unavailable Unavailable MEAGAN OT, THERAPY GASOLINE TRACTOR OPERATOR, MARISSA UnavailPierre ABDUL RN, KAREN Unavailable Unavailable HEBER ([facility]) [facility] - PT, HARSH Unavailable Unavailable DOMINICK RN, HEIDI Unavailable Unavailable Payers Payer Name Policy Type Policy Number Effective Date Expira tion Date [facility] [id number] [place] [id number] [place] - [place] [id number] Problems Condition Name Condition Details Condition Category Status Onset Date Resolution Date Last Treatment Date Treating Clinician Comments MAJOR DEPRESSIVE DISORDER, SINGLE EPISODE, UNSPECIFIED Active 11-25 00:00: 00 AFTERCARE FOLLOWING EXPLANTATION OF KNEE JOINT PROSTHESIS Active 04 00:00: 00 PRESENCE OF RIGHT ARTIFICIAL KNEE JOINT Active -18 00:00: 00 UNSPECIFIED ABNORMALITIE S OF GAIT [...] 10 mg tablet 11-28 00:00: 00 Yes [id number] 10 mg EVERY AM 10 mg EVERY AM (route: oral) Med Classific ation: Central Nervous System Agents benztropine 0.5 mg tablet 11-28 00:00: 00 02-01 23:59 :00 No [id number] 0.5 mg 2 TIMES DAILY 0.5 mg 2 TIMES DAILY (route: oral) Med Classific ation: Central Nervous System Agents Iron (ferrous sulfate) 325 mg (65 mg iron) tablet 11-28 00:00: 00 11-29 23:59 :00 No [id number] 325 mg EVERY AM 325 mg EVERY AM (route: oral) Med Classific ation: Electroly te Balance-N utritiona l Products lamotrigine 25 mg tablet 11-28 00:00: 00 05-26 23:59 :00 No [id number] 25 mg EVERY AM 25 mg EVERY AM (route: oral) Med Classific ation: Central Nervous System Agents lamotrigine 25 mg tablet 05-25 00:00: 00 02-01 23:59 :00 No [id number] 75 mg DAILY 75 mg DAILY (route: oral) Alternate Route: NONE. Med Classific ation: Central Nervous System Agents levothyroxi ne 75 mcg tablet 11-28 00:00: 00 Yes [id number] 75 mcg EVERY AM 75 mcg EVERY AM (route: oral) Med Classific ation: Endocrine Lexapro 20 mg tablet 11-28 00:00: 00 Yes [id number] 20 mg EVERY AM 20 mg EVERY AM (route: oral) Med Classific ation: Central Nervous System Agents Myrbetriq 50 mg tablet,exte nded release 11-28 00:00: 00 11-29 23:59 :00 No [id number] 50 mg EVERY AM 50 mg EVERY AM (route: oral) Med Classific ation: Genitouri nary Therapy omeprazole 20 mg capsule,del ayed release 11-28 00:00: 00 11-29 23:59 :00 No [id number] 20 capsule EVERY AM 20 capsule EVERY AM (route: oral) Med Classific ation: Gastroint estinal Therapy Agents Vitamin D3 50 mcg (2,000 unit) capsule 11-28 00:00: 00 05-22 23:59 :00 No [id number] 2000 capsule EVERY AM 2000 capsule EVERY AM (route: oral) Med Classific ation: Electroly te Balance-N utritiona l Products Dilaudid 4 mg tablet 11-29 00:00: 00 02-01 23:59 :00 No [id number] 4 mg EVERY 3 HOURS 4 mg EVERY 3 HOURS (route: oral) Med Classific ation: Analgesic , Anti-infl ammatory or Antipyret ic Xarelto 10 mg tablet 11-29 00:00: 00 12-13 23:59 :00 No [id number] 10 mg DAILY 10 mg DAILY (route: oral) Med Classific ation: Hematolog ical Agents hydromorpho ne 4 mg tablet 12-10 00:00: 00 02-01 23:59 :00 No [id number] 4 mg NEEDED 4 mg NEEDED (route: oral) Med Classific ation: Analgesic , Anti-infl ammatory or Antipyret ic meclizine 12.5 mg tablet 2020-09 00:00: 00 02-01 23:59 :00 No [id number] 12.5 mg NEEDED 12.5 mg NEEDED (route: oral) Med Classific ation: Gastroint estinal Therapy Agents polysacchar madonna iron complex 150 mg iron capsule 2020-09 00:00: 00 02-01 23:59 :00 No [id number] 150 mg DAILY 150 mg DAILY (route: oral) Med Classific ation: Electroly te Balance-N utritiona l Products benztropine 1 mg tablet 02-01 00:00: 00 01-03 23:59 :00 No [id number] 1 mg DAILY 1 mg DAILY (route: oral) Med Classific ation: Central Nervous System Agents Colace 100 mg capsule 02-01 00:00: 00 Yes [id number] 100 mg NEEDED 100 mg NEEDED (route: oral) Med Classific ation: Gastroint estinal Therapy Agents lamotrigine 200 mg tablet 02-01 00:00: 00 Yes [id number] 200 mg DAILY 200 mg DAILY (route: oral) Med Classific ation: Central Nervous System Agents multivitami n tablet 02-01 00:00: 00 Yes [id number] 1 tablet DAILY 1 tablet DAILY (route: oral) Med Classific ation: Electroly te Balance-N utritiona l Products Protonix 40 mg tablet,benjamin yed release 02-01 00:00: 00 Yes [id number] 40 mg DAILY 40 mg DAILY (route: oral) Med Classific ation: Gastroint estinal Therapy Agents Xarelto 10 mg tablet 2021-09 00:00: 00 08-16 23:59 :00 No [id number] 1 tablet DAILY 1 tablet DAILY (route: oral) Med Classific ation: Hematolog ical Agents acetaminoph en 500 mg tablet 2021-09 00:00: 00 Yes [id number] 2 tablet EVERY 8 HOURS 2 tablet EVERY 8 HOURS (route: oral) Med Classific ation: Analgesic , Anti-infl ammatory or Antipyret ic iron 325 mg (65 mg iron) tablet 05-18 00:00: 00 Yes [id number] 325 mg DAILY 325 mg DAILY (route: oral) Med Classific ation: Electroly te Balance-N utritiona l Products benztropine 0.5 mg tablet 01-07 00:00: 00 Yes [id number] 0.5 mg BEDTIME 0.5 mg BEDTIME (route: oral) Med Classific ation: Central Nervous System Agents benztropine 2 mg tablet 01-07 00:00: 00 Yes [id number] 2 mg EVERY AM 2 mg EVER Y AM (route: oral) Med Classific ation: Central Nervous System Agents Vital Signs Vital Name Observation Time Observation Value Commen ts Temperature 2025-07-16 15:24:00.000 97.7 [degF] Plan of Treatment Planned Activity Planned [...] AND FALL PREVENTION STRATEGIES.] Future Scheduled Test PATIENT SKY S A RISK OF HOSPITALIZATION AND ED USE. SKILLED NURSE TO ESTABLISH SUPPORT MEASURES TO MINIMIZE RISK OF HOSPITALIZATION AND ED USE, AND INSTRUCT PATIENT/CAREGIVER ON METHODS TO REDUCE AVOIDABLE HOSPITALIZATION AND ED USE. [code = PATIENT HAS A RISK OF HOSPITALIZATION AND ED USE. SKILLED NURSE TO ESTABLISH SUPPORT MEASURES TO MINIMIZE RISK OF HOSPITALIZATION AND ED USE, AND INSTRUCT PATIENT/CAREGIVER ON METHODS TO REDUCE AVOIDABLE HOSPITALIZATION AND ED USE.] Future Scheduled Test SKILLED NU RSE TO PROVIDE INSTRUCTION TO PATIENT/CAREGIVER RELATED TO DISCHARGE PLANNING. [code = SKILLED NURSE TO PROVIDE INSTRUCTION TO PATIENT/CAREGIVER RELATED TO DISCHARGE PLANNING.] Future Scheduled Test SKILLED NU RSE WILL MAINTAIN SITUATIONAL AWARENESS FOR SAFETY AND WILL NOTIFY CLINICAL PMO PROJECT MANAGER AND PHYSICIAN/PROVIDER WITH ANY CHANGE IN CONDITION. [code = SKILLED NURSE WILL MAINTAIN SITUATIONAL AWARENESS FOR SAFETY AND WILL NOTIFY CLINICAL PMO PROJECT MANAGER AND PHYSICIAN/PROVIDER WITH ANY CHANGE IN CONDITION.] [...] Test SKILLED NU RSE TO ADMINISTER MEDICATIONS DAILY AND PRE-POUR MEDICATIONS TILL NEXT RESIDENTIAL VISIT PER MEDICATION LIST. [code = SKILLED NURSE TO ADMINISTER MEDICATIONS DAILY AND PRE-POUR MEDICATIONS TILL NEXT RESIDENTIAL VISIT PER MEDICATION LIST.] Future Scheduled Test SKILLED NU RSE FOR MEDICATION ADMINISTRATION PER MEDICATION LIST TO BE PERFORMED THREE TIMES A WEEK [code = SKILLED NURSE FOR MEDICATION ADMINISTRATION PER MEDICATION LIST TO BE PERFORMED THREE TIMES A WEEK] Future Scheduled Test SKILLED NU RSE TO PRE-POUR MEDICATION PER MEDICATION LIST TILL NEXT RESIDENTIAL VISIT [code = SKILLED NURSE TO PRE-POUR MEDICATION PER MEDICATION LIST TILL NEXT RESIDENTIAL VISIT] Future Scheduled Test SKILLED NU RSE FOR [...] NU RSE FOR O/A AND SKILLED TEACHING OF COPING SKILLS TO MANAGE ANXIETY AND MAINTAIN SAFETY. [code = SKILLED NURSE FOR O/A AND SKILLED TEACHING OF COPING SKILLS TO MANAGE ANXIETY AND MAINTAIN SAFETY.] Future Scheduled Test SKILLED NU RSE TO ASSESS PATIENT S PSYCHOSOCIAL STATUS TO IDENTIFY POTENTIAL ISSUES THAT MAY COMPLICATE THE PROVISION OF THE PLAN OF CARE INCLUDING THE PATIENT S ABILITY TO ACCESS COMMUNITY RESOURCES AND PSYCHOSOCIAL SUPPORT SERVICES. [code = SKILLED NURSE TO ASSESS PATIENT S PSYCHOSOCIAL STATUS TO IDENTIFY POTENTIAL ISSUES THAT MAY COMPLICATE THE PROVISION OF THE PLAN OF CARE INCLUDING THE PATIENT S ABILITY TO ACCESS COMMUNITY RESOURCES AND PSYCHOSOCIAL SUPPORT SERVICES.] Future Scheduled Test SKILLED NU RSE FOR O/A OF ALTERED MOOD [code = SKILLED NURSE FOR O/A OF ALTERED MOOD] Future Scheduled Test MEDICATION S WILL BE HELD AND STORED IN LOCKBOX [code = MEDICATIONS WILL BE HELD AND STORED IN LOCKBOX] Goal 2021-07-24 Patient Goal - WALK FREELY Goal 2022-09-16 Patient Goal - GETTING STRON MAKI Goal 2021-01-25 Patient Goal - WALK FREELY Goal 2021-05-26 Patient Goal - WALK FREELY Goal 2021-03-24 Patient Goal - WALK FREELY Goal Patient Goal - GETTING STRON MAKI Goal 2025-07-03 Patient Goal - GETTING STRON MAKI Goal 2025-05-05 Patient Goal - GETTING STRON MAKI Goal 2025-03-03 Patient Goal - GETTING STRON MAKI Goal 2025-01-03 Patient Goal - GETTING STRON MAKI Goal [...] Patient Goal - GETTING STRON MAKI Goal Provider Goal - A PLAN OF CARE WILL BE ESTABLISHED THAT MEETS PATIENT'S RESIDENTIAL NEEDS AND INCLUDES PATIENT GOAL FOR HOME HEALTH. Goal Provider Goal - PATIENT/CAREGIVER WILL VERBALIZE/DEMONSTRATE EFFECTIVE HOME SAFETY AND FALL PREVENTION STRATEGIES THROUGHOUT CERTIFICATION PERIOD. Goal Provider Goal - PATIENT WILL HAVE SUPPORT MEASURES ESTABLISHED TO PREVENT HOSPITALIZATION AND ED USE AND PATIENT/CAREGIVER WILL VERBALIZE/DEMONSTRATE METHODS TO REDUCE AVOIDABLE HOSPITALIZATION AND ED USE BY END OF EPISODE. Goal Provider Goal - PATIENT/CAREGIVER WILL VERBALIZE UNDERSTANDING OF DISCHARGE PLANNING INSTRUCTIONS BY DATE OF DISCHARGE. Goal Provider Goal - PATIENT WILL REMAIN [...] PERIOD. Goal Provider Goal - PATIENT WILL BE ABLE TO PERFORM DAILY FUNCTIONS AND HAVE OPTIMAL IMPROVEMENT IN LEVEL OF ANXIETY THROUGHOUT CERTIFICATION PERIOD. Goal Provider Goal - PSYCHOSOCIAL NEEDS WILL BE IDENTIFIED AND PLAN IMPLEMENTED TO MINIMIZE RISK THROUGHOUT CERTIFICATION PERIOD. Goal Provider Goal - PATIENT WILL BE ABLE TO PERFORM DAILY FUNCTIONS AND HAVE OPTIMAL IMPROVEMENT IN MOOD STABILITY THROUGHOUT CERTIFICATION PERIOD. Goal Provider Goal - MEDICATION WILL BE STORED IN LOCKBOX FOR SAFETY. Encounters Start Date/Time End Date/Time Encounter Type Admission Type Attending [facility] Care Department Encounter ID Discharge Date Discharge Status Discharge Condition Discharge Reason Percent Goals Met 2025-07-06 00:00:00 2025-09-03 00:00:00 Outpatient RECERTIFIC ATION [facility] [id number] 9.52
== END 2025-08-07 17:01 | disposition home or self-care (01) ==
LOC: HO.HBS 16:30
PROVIDERS: PCP Internal Medicine Infectious Disease; Visit Provider Physician Assistant Surgical
DX: E66.01 Morbid (severe) obesity due to excess calories (principal); Z90.3 Acquired absence of stomach [part of]
CPT/HCPCS: 99214; G2211

== ENCOUNTER → 2025-08-07 16:30 | Outpatient (BNVA) | payer OTHER, SELFPAY | PROVIDERS: PCP Internal Medicine Infectious Disease; Visit Provider Physician Assistant Surgical | DX: E66.01 Morbid (severe) obesity due to excess calories (principal); K90.49 Malabsorption due to intolerance, not elsewhere classified; Z68.43 Body mass index [BMI] 50.0-59.9, adult; Z90.3 Acquired absence of stomach [part of] | CPT/HCPCS: 99212 ==